=== PATIENT | female | born 1975 | race Caucasian/White ===

== ENCOUNTER 2017-12-13 06:34 | Day surgery (SDC) | payer MEDICAID ==
[2017-12-11 15:54] VITALS: BMI 29.7
[~2017-12-13 06:34] MED LIST: HEPARIN SODIUM,PORCINE 5,000 UNIT/ML 1 ML VIAL SQ ONE; Pre Op ABX Message 1 EACH MISC MISCELLANE ONE
[2017-12-13] MEDS ORDERED: MORPHINE SULFATE 4 MG/ML SYRINGE IV PRN (06:45)
[2017-12-13] MEDS ORDERED: LACTATED RINGERS 1,000 ML IV SCH (06:45)
[2017-12-13] MEDS ORDERED: LIDOCAINE 1% 20 ML VIAL (10MG/ML) FOR IV START INTRADERMA PRN (06:45)
[2017-12-13] MEDS ORDERED: SCOPOLAMINE 1.5MG/72HR PATCH TRANSDERM ONE (06:45)
[2017-12-13] MEDS ORDERED: MIDAZOLAM 2 MG/2 ML VIAL IV PRN (06:45)
[2017-12-13] MEDS ORDERED: HYDROmorphone 0.5 MG/0.5 ML SYRINGE IVP PRN (06:45)
[2017-12-13] MEDS ORDERED: ONDANSETRON 4 MG/2 ML VIAL IVP ONE (06:45)
[2017-12-13] MEDS ORDERED: DEXAMETHASONE SOD PHOSPHATE 10 MG/ML 1 ML VIAL IV ONE (06:45)
[2017-12-13 07:29] LABS: Glucose,Whole Blood 128 mg/dL (75-99)
[2017-12-13] MEDS ORDERED: BUPIVACAINE (PF) 0.25% 30 ML VIAL SQ ONE ×3 (07:53→08:51)
[2017-12-13] MEDS ORDERED: MIDAZOLAM 2 MG/2 ML VIAL ONE (08:15)
[2017-12-13] MEDS ORDERED: LIDOCAINE 1% INJ 10MG/ML (20 ML MDV) ONE (08:15)
[2017-12-13] MEDS ORDERED: SUCCINYLCHOLINE CHLORIDE 100 MG/5 ML SYR IV ONE (08:15)
[2017-12-13] MEDS ORDERED: KETOROLAC 30 MG/ML 1 ML VIAL ONE (08:15)
[2017-12-13] MEDS ORDERED: PROPOFOL 10 MG/ML 20 ML VIAL IV ONE (08:15)
[2017-12-13] MEDS ORDERED: fentaNYL (PF) 50 MCG/ML 2 ML AMP ONE (08:15)
[2017-12-13] MEDS ORDERED: traMADol 50 MG TAB PO PRN (08:31)
[2017-12-13] MEDS ORDERED: NALOXONE 0.4 MG/ML 1 ML VIAL IV PRN (08:31)
[2017-12-13 09:19] VITALS: TEMP 97.1
--- NOTE | 2017-12-13 09:36 | P.OP ---
Date of Procedure: 12/13/17 Procedure(s) Performed: PREOPERATIVE DIAGNOSIS: Sebaceous cyst on back POSTOPERATIVE DIAGNOSIS: Same PROCEDURE: Excision sebaceous cyst, intermediate closure 4 cm SURGEON: Marilia KINGL: Minimal ANESTHESIA: General COMPLICATIONS: None OPERATIVE PROCEDURE: Patient place never table in the prone position after general anesthesia achieved. The upper back was prepped and draped in usual sterile fashion. The puncta of the sebaceous cyst was seen. An elliptical portion of skin was removed overlying the cystic mass. The subcutaneous tissues were then dissected. The sebaceous cyst was fully excised at that point. This measured 3 x 4 cm. The subcutaneous tissues were closed using interrupted 3-0 Vicryl sutures and the skin using a running 4-0 Monocryl stitch. Steri-Strips and sterile dressings were applied. DISPOSITION: Stable to recovery room
[2017-12-13 09:47] VITALS: RESP 16
[2017-12-13 10:11] VITALS: BP 134/79; PULSE 75
[2017-12-13] MEDS ORDERED: IBUPROFEN 200 MG TAB PO ONE (10:11)
== END 2017-12-13 10:38 | disposition home or self-care (01) ==
LOC: OR 06:34
PROVIDERS: ATTEND Surgery
DX: L72.0 Epidermal cyst (principal); I10 Essential (primary) hypertension; R73.03 Prediabetes; F32.9 Major depressive disorder, single episode, unspecified; Z87.891 Personal history of nicotine dependence; F41.9 Anxiety disorder, unspecified; Z79.1 Long term (current) use of non-steroidal anti-inflammatories (NSAID); Z79.899 Other long term (current) drug therapy; Z88.0 Allergy status to penicillin; Z91.030 Bee allergy status; Z91.040 Latex allergy status; Z91.09 Other allergy status, other than to drugs and biological substances
CPT/HCPCS: 11404; 88304; J2250; J1644; J1100; J2405; J2001; J3010; J1885; J0330; J2704

== ENCOUNTER → 2018-05-29 | Outpatient (CLI) | payer MEDICAID ==
--- NOTE | 2018-05-31 10:51 | MM ---
Reason for exam: screening (asymptomatic). Last mammogram was performed 2 years and 5 months ago. History: Patient is postmenopausal. Retro-pectoral silicone gel implants, 2011. MG 3D Screen Mammo Imp/Cad Bilateral CC, MLO, and ID view(s) were taken. Prior study comparison: December 30, 2015, bilateral MG 3d screen mammo imp/cad. June 30, 2014, mammogram, performed at [facility]. There are scattered fibroglandular densities. No significant changes when compared with prior studies. ASSESSMENT: Negative, BI-RAD 1 RECOMMENDATION: Routine screening mammogram of both breasts in 1 year.
== END ==
LOC: RADMAMWWP 15:29
PROVIDERS: ATTEND Family Medicine
DX: Z12.31 Encounter for screening mammogram for malignant neoplasm of breast (principal); Z01.419 Encounter for gynecological examination (general) (routine) without abnormal findings
CPT/HCPCS: 77063; 77067

== ENCOUNTER 2018-05-30 06:33 | Day surgery (SDC) | payer MEDICAID ==
[2018-05-28 09:04] VITALS: BMI 31.8
[~2018-05-30 06:33] MED LIST changes: -HEPARIN SODIUM,PORCINE 5,000 UNIT/ML 1 ML VIAL SQ ONE; +HYDROmorphone 1 MG/ML 1 ML SYRINGE IVP PRN; +LACTATED RINGERS 1,000 ML IV SCH; -Pre Op ABX Message 1 EACH MISC MISCELLANE ONE
[2018-05-30 07:10] VITALS: TEMP 98.1
[2018-05-30 07:13] LABS: Glucose,Whole Blood 138 mg/dL (75-99)
[2018-05-30] MEDS ORDERED: PROPOFOL 10 MG/ML 20 ML VIAL IV ONE (07:37)
[2018-05-30] MEDS ORDERED: LIDOCAINE 1% INJ 10MG/ML (20 ML MDV) ONE (07:37)
[2018-05-30 07:52] VITALS: RESP 16
--- NOTE | 2018-05-30 07:53 | P.PCN ---
Date of Procedure: 05/30/18 Procedure(s) Performed: BRIEF HISTORY: Patient is a 43-year-old, pleasant, white female, scheduled for an upper endoscopy as a part of evaluation of positive on celiac serology. She has no family history of celiac disease. He has history of IBS that is constipation predominant diagnosable years ago. PROCEDURE PERFORMED: Esophagogastroduodenoscopy with biopsy. PREOPERATIVE DIAGNOSIS: Positive celiac serology. IV sedation per anesthesia. PROCEDURE: After informed consent was obtained, the patient was brought into the endoscopy unit. IV sedation was administered by Anesthesia under continuous monitoring. Initially the Olympus GIF-140 video endoscope was inserted into the mouth. Esophagus intubated without any difficulty. It was gradually advanced into the stomach and duodenum and carefully examined. The bulb and the second part of the duodenum appeared normal. Multiple biopsies were done from the duodenum to evaluate for celiac disease. The scope at this time was withdrawn to the stomach, adequately insufflated with air, and upon careful examination, mucosa of the antrum had mild gastritis and biopsies were done from this area. The, body, cardia and the fundus appeared normal. The scope was then withdrawn into the esophagus. The GE junction was located at 39 cm from the incisors. The esophagus appeared normal. There were no erosions or ulcerations seen and the patient tolerated the procedure well. IMPRESSION: 1. Mild antral gastritis. 2. Normal-appearing duodenum status post multiple biopsies to rule out celiac disease. RECOMMENDATIONS: The findings of this examination were discussed with the patient as well as her family. She was advised to follow with the biopsy results and she'll be seen in office in 2 weeks
[2018-05-30 08:05] VITALS: BP 152/93; PULSE 70
== END 2018-05-30 08:53 | disposition home or self-care (01) ==
LOC: ORWHC2ENDO 06:33
PROVIDERS: ATTEND Internal Medicine Gastroenterology
DX: K29.70 Gastritis, unspecified, without bleeding (principal); Z91.040 Latex allergy status; I10 Essential (primary) hypertension; E11.9 Type 2 diabetes mellitus without complications; N30.10 Interstitial cystitis (chronic) without hematuria; Z79.899 Other long term (current) drug therapy; Z79.1 Long term (current) use of non-steroidal anti-inflammatories (NSAID); Z87.891 Personal history of nicotine dependence; Z88.0 Allergy status to penicillin
CPT/HCPCS: 88305; 43239; J2001; J2704

== ENCOUNTER → 2019-08-09 | Outpatient (CLI) | payer MEDICAID ==
--- NOTE | 2019-08-09 13:58 | MM ---
Reason for exam: screening (asymptomatic). Last mammogram was performed 1 year and 2 months ago. History: Patient is postmenopausal. Retro-pectoral silicone gel implants, 2011. Physical Findings: A clinical breast exam by your physician is recommended on an annual basis and results should be correlated with mammographic findings. MG 3D Screen Mammo Imp/Cad Bilateral CC and MLO view(s) were taken. Prior study comparison: May 29, 2018, bilateral MG 3d screen mammo imp/cad. December 30, 2015, bilateral MG 3d screen mammo imp/cad. The breast tissue is heterogeneously dense. This may lower the sensitivity of mammography. There are benign appearing round calcifications bilaterally. There is no discrete abnormality. Bilateral subpectoral implants. ASSESSMENT: Benign, BI-RAD 2 RECOMMENDATION: Routine screening mammogram of both breasts in 1 year.
== END | disposition home or self-care (01) ==
LOC: RADMAMWWP 07:44
PROVIDERS: ATTEND Family Medicine
DX: Z12.31 Encounter for screening mammogram for malignant neoplasm of breast (principal)
CPT/HCPCS: 77063; 77067

== ENCOUNTER → 2020-09-09 | Outpatient (CLI) | payer MEDICAID ==
--- NOTE | 2020-09-10 12:18 | MM ---
Reason for exam: screening (asymptomatic). Last mammogram was performed 1 year and 1 month ago. History: Patient is postmenopausal. Retro-pectoral silicone gel implants, 2012. Took hormonal contraceptives for 25 years beginning at age 17. Physical Findings: Nurse did not find any significant physical abnormalities on exam. MG 3D Screen Mammo Imp/Cad Bilateral CC, MLO, and ID view(s) were taken. Prior study comparison: August 09, 2019, bilateral MG 3d screen mammo imp/cad. May 29, 2018, bilateral MG 3d screen mammo imp/cad. The breast tissue is heterogeneously dense. This may lower the sensitivity of mammography. Focal asymmetry upper outer right breast anterior third position. ASSESSMENT: Incomplete: need additional imaging evaluation, BI-RAD 0 RECOMMENDATION: Special view mammogram of the right breast. If lesion persists on supplemental views, image directed ultrasound is recommended. [facility] will attempt to contact patient to return for supplemental views and ultrasound if indicated.
== END | disposition home or self-care (01) ==
LOC: RADMAMWWP 07:05
PROVIDERS: ATTEND Family Medicine
DX: Z12.31 Encounter for screening mammogram for malignant neoplasm of breast (principal); Z98.82 Breast implant status
CPT/HCPCS: 77063; 77067

== ENCOUNTER → 2020-09-11 | Outpatient (CLI) | payer MEDICAID ==
--- NOTE | 2020-09-11 09:34 | MM ---
Reason for exam: additional evaluation requested from abnormal screening. Last mammogram was performed less than 1 month ago. History: Patient is postmenopausal. Retro-pectoral silicone gel implants, 2012. Took hormonal contraceptives for 25 years beginning at age 17. Physical Findings: Nurse did not find any significant physical abnormalities on exam. MG 3D Work Up W/Cad W/Imp RT Spot compression CC, spot compression MLO, and ML view(s) were taken of the right breast. Prior study comparison: September 09, 2020, bilateral MG 3d screen mammo imp/cad. August 09, 2019, bilateral MG 3d screen mammo imp/cad. There is no discrete abnormality including area of concern. These results were verbally communicated with the patient and result sheet given to the patient on 09/11/20. ASSESSMENT: Negative, BI-RAD 1 RECOMMENDATION: Return to routine screening mammogram schedule for both breasts.
== END | disposition home or self-care (01) ==
LOC: RADMAMWWP 07:10
PROVIDERS: ATTEND Family Medicine
DX: R92.8 Other abnormal and inconclusive findings on diagnostic imaging of breast (principal)
CPT/HCPCS: 77061; 77065

== ENCOUNTER → 2021-08-10 | Outpatient (CLI) | payer BC, MEDICAID ==
[~2021-08-10] MED LIST changes: +CASIRIVIMAB (REGN10933) (EUA) 600 MG, IMDEVIMAB (REGN10987) (EUA) 600 MG in SODIUM CHLO... IVPB ONE; -HYDROmorphone 1 MG/ML 1 ML SYRINGE IVP PRN; -LACTATED RINGERS 1,000 ML IV SCH; +SODIUM CHLORIDE 0.9% 50 ML IVPB ONE; +SODIUM CHLORIDE 0.9% 500 ML 500 ML in EMPTY BAG 1 BAG IV PRN
[2021-08-10 10:43] VITALS: RESP 16; TEMP 97.4
[2021-08-10 11:35] VITALS: BP 146/89; PULSE 66
== END ==
LOC: PROCWHC3 09:52
PROVIDERS: ATTEND Family Medicine
DX: U07.1 COVID-19 (principal); E11.9 Type 2 diabetes mellitus without complications; Z68.31 Body mass index [BMI] 31.0-31.9, adult; Z88.0 Allergy status to penicillin; Z91.040 Latex allergy status; Z91.030 Bee allergy status; Z87.891 Personal history of nicotine dependence
CPT/HCPCS: 96360; Q0244; M0243

== ENCOUNTER 2022-03-28 18:59 | Emergency (ER) | payer BC, OTHER ==
[2022-03-28 19:20] VITALS: BP 150/84; PULSE 77; RESP 18; TEMP 98.3
[2022-03-28] MEDS ORDERED: HYDROcodone/APAP 5-325MG 1 EACH TAB PO STA (20:15)
[2022-03-28] MEDS ORDERED: KETOROLAC 15 MG/ML 1 ML VIAL IM STA (20:15)
--- NOTE | 2022-03-28 20:18 | ED ---
Extremity Problem HPI - General Chief complaint: Extremity Problem,Nontraumatic Stated complaint: L knee injury Time Seen by Provider: 03/28/22 20:01 Source: patient, RN notes reviewed Mode of arrival: wheelchair Limitations: physical limitation - History of Present Illness Initial comments: This is a pleasant 46-year-old female who jumped out of her 's truck prior to arrival and her left knee gave out on her. Patient states she's been unable to walk on the knee since then. She is complaining of most of the pain just below the knee joint itself. She also complains of some pain in the popliteal area and over the anterior aspect of the knee joint. She denies any hip or ankle pain. She does have some distal Karlee to since injury. Movement exacerbates the pain. Position and rest somewhat alleviates the pain. No other injuries. Patient did not take anything for pain prior to arrival. No headache, no fever or chills, no changes in vision or hearing, no sore throat or difficulty with speech, no neck pain, no chest pain or shortness of breath, no abdominal pain, no nausea or vomiting, no changes in urination or bowel movements no skin rashes or lesions. Past medical, surgical, social, and family history reviewed. - Related Data Home Medications Medication Instructions Recorded Confirmed ALPRAZolam [Xanax] 0.25 mg PO HS PRN 12/11/17 10/17/18 FLUoxetine HCL [PROzac] 10 mg PO HS 12/11/17 10/17/18 Ibuprofen [Motrin Ib] 200 mg PO Q6H PRN 12/11/17 10/17/18 amLODIPine [Norvasc] 2.5 mg PO HS 12/11/17 10/17/18 Cholecalciferol [Vitamin D3] 2,000 unit PO DAILY 05/28/18 10/17/18 metFORMIN HCL [Glucophage] 500 mg PO DAILY 10/17/18 10/17/18 Previous Rx's Medication Instructions Recorded Ibuprofen [Motrin] 600 mg PO Q8HR PRN #30 tab 03/28/22 Allergies Allergy/AdvReac Type Severity Reaction Status Date / Time bee pollen Allergy Rash/Hives Verified 03/28/22 19:16 Latex, Natural Rubber Allergy Rash/Hives Verified 03/28/22 19:16 Penicillins Allergy Rash/Hives Verified 03/28/22 19:16 Review of Systems ROS Statement: Those systems with pertinent positive or pertinent negative responses have been documented in the HPI. ROS Other: All systems not noted in ROS Statement are negative. Past Medical History Past Medical History: Diabetes Mellitus, Hypertension Additional Past Medical History / Comment(s): abdominal pain,bloating and gas,hx interstitial cystitis, "pre-diabetic" History of Any Multi-Drug Resistant Organisms: None Reported Past Surgical History: Section, Cholecystectomy, Hysterectomy, Uterine Ablation Additional Past Surgical History / Comment(s): laparoscopy, breast implants, tummy tuck, EGD,colonoscopy Past Anesthesia/Blood Transfusion Reactions: No Reported Reaction Past Psychological History: Depression Smoking Status: Never smoker Past Alcohol Use History: Occasional Past Drug Use History: None Reported - Past Family History Father Family Medical History: Deep Vein Thrombosis (DVT) General Exam Limitations: physical limitation General appearance: in distress Head exam: Present: atraumatic, normocephalic, normal inspection Eye exam: Present: normal appearance, EOMI Neck exam: Present: normal inspection, full ROM Respiratory exam: Present: normal lung sounds bilaterally. Absent: respiratory distress, wheezes, rales, rhonchi, stridor Cardiovascular Exam: Present: regular rate, normal rhythm, normal heart sounds. Absent: systolic murmur, diastolic murmur, rubs, gallop, clicks GI/Abdominal exam: Present: soft. Absent: tenderness Extremities exam: Present: normal inspection, tenderness, normal capillary refill, other (Chest tenderness to the bilateral left knee joint, no break in skin integrity. No erythema. No crepitus. Range of motion limited secondary to pain. Patient is able to almost fully extend the knee. Extension and flexion limited by pain. No palpable effusion.). Absent: full ROM, pedal edema, joint swelling, calf tenderness Back exam: Present: normal inspection, full ROM. Absent: tenderness Neurological exam: Present: alert, oriented X3, CN II-XII intact Psychiatric exam: Present: normal affect, normal mood Course Vital Signs 03/28/22 19:17 Temperature 98.3 F Pulse Rate 77 Respiratory 18 Rate Blood Pressure 150/84 O2 Sat by Pulse 95 Oximetry Medical Decision Making - Medical Decision Making Patient percents after her left knee gave out when she jumped out of a truck. This was not direct trauma. He was actually actionable finding. I suspect the patient has internal derangement of left knee, possible ligamentous injury. Was unable to perform detailed physical examination due to the patient's pain. We'll place the patient in the immobilizer and crutches. Discussed the possibility of occult fracture. Currently awaiting radiology interpretation. Tylenol with Codeine starter pack. Ibuprofen. Patient was told to return to the ER for any signs or symptoms worsen. Told to return immediately if any other problems arise. All questions answered. Treatment plan discussed. Patient in agreement Every effort has been made to ensure accuracy of this dictation. However, due to the limitations of electronic medical records and dictation devices, errors in charting still occur. Discussed all findings and treatment plan with the patient. Orthopedic follow- up given. [facility] Classer Dr. Malhotra - Radiology Data Radiology results: pending (No fracture or dislocation as read by me. Awaiting radiology interpretation.), image reviewed Disposition Clinical Impression: Internal derangement of left knee Disposition: HOME SELF-CARE Condition: Good Instructions (If sedation given, give patient instructions): Crutch Instructions (ED), Knee Pain (ED), Knee Immobilizer (ED) Additional Instructions: Follow-up with your regular physician as directed. Return to the ER immediately if any symptoms worsen, new symptoms arise, or any other problems develop. Follow-up with the orthopedic physician as directed. Wear the knee immobilizer use the crutches as directed. Prescriptions: Ibuprofen [Motrin] 600 mg PO Q8HR PRN #30 tab PRN Reason: Pain Is patient prescribed a controlled substance at d/c from ED?: No Referrals: Sloane Larsen III, MD [Primary Care Provider] - 1-2 days Time of Disposition: 21:24
[2022-03-28] MEDS ORDERED: IBUPROFEN 600 MG STARTER PACK 4 TAB BTL PO STA (21:23)
[2022-03-28] MEDS ORDERED: ACET/COD 300 MG/30 MG STARTER PACK 6 TAB BTL PO STA (21:23)
--- NOTE | 2022-03-28 21:28 | XR ---
EXAMINATION TYPE: XR knee complete LT DATE OF EXAM: 03/28/2022 COMPARISON: NONE HISTORY: Pain TECHNIQUE: 3 views FINDINGS: I see no fracture nor dislocation. Joint spaces are normal. No sign of knee joint effusion. IMPRESSION: Negative left knee exam. No fracture
== END 2022-03-28 22:20 | disposition home or self-care (01) ==
LOC: EC 18:59
DX: M23.92 Unspecified internal derangement of left knee (principal); E11.9 Type 2 diabetes mellitus without complications; I10 Essential (primary) hypertension; Z91.030 Bee allergy status; Z88.0 Allergy status to penicillin; Z91.040 Latex allergy status
CPT/HCPCS: 73562; 99283; 96372; J1885

== ENCOUNTER → 2022-08-02 | Outpatient (CLI) | payer OTHER ==
--- NOTE | 2022-08-03 17:05 | MM ---
Reason for Exam: Screening (asymptomatic). Last mammogram was performed 1 year(s) and 11 month(s) ago. Patient History: Menarche at age 11. First Full-Term at age 20. Hysterectomy at age 39. Postmenopausal. Patient has history of breast feeding. Hormonal Contraceptives, starting at age 17 for 25 years. 2012, Implant(s). Risk Values: Adela 5 year model risk: 0.9%. NCI Lifetime model risk: 9.2%. Prior Study Comparison: 08/09/2019 Bilateral Screening Mammogram, [facility]. 09/09/2020 Bilateral Screening Mammogram, [facility]. 09/11/2020 Right Diagnostic Mammogram, [facility]. Tissue Density: There are scattered fibroglandular densities. Findings: Analyzed By CAD. Pattern appears symmetrical and stable. Bilateral breast prostheses are present. No suspicious groups of microcalcifications, spiculated or lobular masses, architectural distortion or other secondary signs of malignancy are mammographically apparent. Overall Assessment: Benign, BI-RAD 2 Management: Screening Mammogram of both breasts in 1 year. A negative mammogram report should not preclude additional follow up of suspicious palpable abnormalities. Patient should continue monthly self breast exam. A clinical breast exam by your physician is recommended on an annual basis and results should be correlated with mammographic findings. Electronically signed and approved by: Marcus Diehl D.O. Radiologis
== END | disposition home or self-care (01) ==
LOC: RADMAMWWP 08:59
PROVIDERS: ATTEND Family Medicine
DX: Z12.31 Encounter for screening mammogram for malignant neoplasm of breast (principal); Z78.0 Asymptomatic menopausal state; Z98.82 Breast implant status
CPT/HCPCS: 77063; 77067

== ENCOUNTER → 2023-11-28 | Outpatient (CLI) | payer OTHER ==
--- NOTE | 2023-11-29 09:14 | MM ---
Reason for Exam: Screening (asymptomatic). Last mammogram was performed 1 year(s) and 3 month(s) ago. Patient History: Menarche at age 11. First Full-Term at age 20. Hysterectomy at age 39. Postmenopausal. Patient has history of breast feeding. Hormonal Contraceptives, starting at age 17 for 25 years. 2012, Implant(s). Risk Values: Adela 5 year model risk: 0.9%. NCI Lifetime model risk: 9.1%. Prior Study Comparison: 09/09/2020 Bilateral Screening Mammogram, [facility]. 09/11/2020 Right Diagnostic Mammogram, [facility]. 08/02/2022 Bilateral MG 3D screen mammo imp/cad., [facility]. Tissue Density: The breasts are heterogeneously dense, which may obscure small masses. Findings: Analyzed By CAD. Bilateral breast implants appear intact. Right breast: There is no suspicious group of microcalcifications or new suspicious mass. Left breast: There is no suspicious group of microcalcifications or new suspicious mass. Overall Assessment: Negative, BI-RAD 1 Management: Screening Mammogram of both breasts in [address] [facility] will attempt to contact patient to return for supplemental views and ultrasound if indicated. Patient should continue monthly self-breast exams. A clinical breast exam by your physician is recommended on an annual basis. This exam should not preclude additional follow-up of suspicious palpable abnormalities. Note on Adela scores and lifetime risk: 1. A Adela score greater than 3% is considered moderate risk. If this is the case, consider specialist referral to assess eligibility for a risk reducing agent. 2. If overall lifetime risk for the development of breast cancer is 20% or higher, the patient may qualify for future screening with alternating mammogram and breast MRI. Electronically signed and approved by: Kael Woodson DO
== END | disposition home or self-care (01) ==
LOC: RADMAMWWP 06:57
PROVIDERS: ATTEND Family Medicine
DX: Z12.31 Encounter for screening mammogram for malignant neoplasm of breast (principal); Z78.0 Asymptomatic menopausal state; Z98.82 Breast implant status
CPT/HCPCS: 77063; 77067

== ENCOUNTER 2024-01-02 09:32 | Inpatient (IN) | payer MEDICAID, OTHER ==
--- NOTE | 2024-01-02 10:13 | ED ---
Chest Pain HPI - General Chief Complaint: Chest Pain Stated Complaint: R arm pain/Abn EKG Time Seen by Provider: 01/02/24 09:40 Source: patient, EMS Mode of arrival: EMS Limitations: no limitations - History of Present Illness Initial Comments: 48-year-old female presents to the emergency department from her doctor's office. States that she started having pain in her right shoulder that radiates into her right arm. Pain is not reproducible upon palpation or movement. She had an EKG performed which was abnormal and therefore she was sent to the hospital. Patient is a diabetic and has high blood pressure. States she has a large family history of cardiac disease. No personal history of heart problems. She did not take anything for the pain. No pain that radiates to the back. No concern for . No abdominal pain or changes in her bowel or bladder habits. She did receive 4 chewable aspirins before being sent to the hospital. no other alleviating, precipitating or modifying factors - Related Data Home Medications Medication Instructions Recorded Confirmed Ascorbic Acid [Vitamin C] 1,000 mg PO DAILY 01/02/24 01/02/24 Cyanocobalamin (Vitamin B-12) 1,000 mcg PO DAILY 01/02/24 01/02/24 [Vitamin B-12] Ergocalciferol (Vitamin D2) 1,250 mcg PO MO 01/02/24 01/02/24 [Drisdol (50,000 Iu)] Sertraline [Zoloft] 100 mg PO DAILY 01/02/24 01/02/24 busPIRone HCl [Buspar] 10 mg PO BID 01/02/24 01/02/24 metFORMIN HCL 1,000 mg PO BID 01/02/24 01/02/24 Previous Rx's Medication Instructions Recorded Aspirin 81 mg PO DAILY #90 tab 01/04/24 Atorvastatin [Lipitor] 40 mg PO HS #90 tablet 01/04/24 amLODIPine [Norvasc] 5 mg PO DAILY #90 tab 01/04/24 lisinopriL [Zestril] 20 mg PO DAILY #90 tab 01/04/24 Allergies Allergy/AdvReac Type Severity Reaction Status Date / Time bee pollen Allergy Rash/Hives Verified 01/02/24 11:19 Latex, Natural Rubber Allergy Rash/Hives Verified 01/02/24 11:19 Penicillins Allergy Rash/Hives Verified 01/02/24 11:19 Review of Systems ROS Statement: Those systems with pertinent positive or pertinent negative responses have been documented in the HPI. ROS Other: All systems not noted in ROS Statement are negative. Past Medical History Past Medical History: Diabetes Mellitus, Hypertension Additional Past Medical History / Comment(s): abdominal pain,bloating and gas,hx interstitial cystitis, "pre-diabetic" History of Any Multi-Drug Resistant Organisms: None Reported Past Surgical History: Section, Cholecystectomy, Hysterectomy, Orthopedic Surgery, Uterine Ablation Additional Past Surgical History / Comment(s): laparoscopy, breast implants, tummy tuck, EGD,colonoscopy, L knee meniscus and ACL Past Anesthesia/Blood Transfusion Reactions: No Reported Reaction Past Psychological History: Depression Smoking Status: Never smoker Past Alcohol Use History: Occasional Past Drug Use History: None Reported - Past Family History Father Family Medical History: Deep Vein Thrombosis (DVT) Mother Family Medical History: Coronary Artery Disease (CAD) Additional Family Medical History / Comment(s): Triple bipass Brother(s) Family Medical History: Diabetes Mellitus, Myocardial Infarction ([place]) General Exam Limitations: no limitations General appearance: alert, in no apparent distress Head exam: Present: atraumatic, normocephalic, normal inspection Eye exam: Present: normal appearance, PERRL, EOMI. Absent: scleral icterus, conjunctival injection, periorbital swelling ENT exam: Present: normal exam, mucous membranes moist Neck exam: Present: normal inspection. Absent: tenderness, meningismus, lym phadenopathy Respiratory exam: Present: normal lung sounds bilaterally. Absent: respiratory distress, wheezes, rales, rhonchi, stridor Cardiovascular Exam: Present: regular rate, normal rhythm, normal heart sounds. Absent: systolic murmur, diastolic murmur, rubs, gallop, clicks GI/Abdominal exam: Present: soft, normal bowel sounds. Absent: distended, tenderness, guarding, rebound, rigid Extremities exam: Present: normal inspection, full ROM, normal capillary refill. Absent: tenderness, pedal edema, joint swelling, calf tenderness Back exam: Present: normal inspection Neurological exam: Present: alert, oriented X3, CN II-XII intact Psychiatric exam: Present: normal affect, normal mood Skin exam: Present: warm, dry, intact, normal color. Absent: rash Course Vital Signs 01/02/24 01/02/2401/01/24 09:34 10:41 12:04 Temperature 97.9 F Pulse Rate 58 L 61 58 L Respiratory 18 16 18 Rate Blood Pressure 183/97 171/96 158/86 O2 Sat by Pulse 98 99 97 Oximetry Chest Pain MDM - MDM Was pt. sent in by a medical professional or institution (SANTY Denis, D[employer] MARKETING MANAGER, urgent care, hospital, or detention...) When possible be specific @ -Patient sent in from the clinic with abnormal EKG Did you speak to anyone other than the patient for history (EMS, parent, family, police, friend...)? What history was obtained from this source @ -No Did you review nursing and triage notes (agree or disagree)? Why? @ -I reviewed and agree with nursing and triage notes Were old charts reviewed (outside hosp., previous admission, EMS record, old EKG, old radiological studies, urgent care reports/EKG's, detention records)? Report findings @ -I reviewed the EKG that was done at the clinic today Differential Diagnosis (chest pain, altered mental status, abdominal pain women, abdominal pain men, vaginal bleeding, weakness, fever, dyspnea, syncope, headache, dizziness, GI bleed, back pain, seizure, CVA, palpatations, mental health, musculoskeletal)? @ -Differential Chest Pain: Stable Angina, Unstable Angina, STEMI, NSTEMI Aortic Dissection, Pneumothorax, Musculoskeletal, Esophageal Spasm GERD, Cholecystitis, Pancreatitis, Zoster, this is not meant to be an all-inclusive list. EKG interpreted by me (3pts min.). @ -Yes and demonstrates sinus bradycardia with a rate of 54. MI interval 144. QRS 97. QTc of 410. Inverted T wave V2V3. No acute ST segment elevation X-rays interpreted by me (1pt min.). @ -Yes and demonstrates no acute process CT interpreted by me (1pt min.). @ -None done U/S interpreted by me (1pt. min.). @ -None done What testing was considered but not performed or refused? (CT, X-rays, U/S, labs)? Why? @ -None What meds were considered but not given or refused? Why? @ -None Did you discuss the management of the patient with other professionals (professionals i.e. SANTY Denis, D[employer] CONTENT MARKETING MANAGER, lab, RT, psych nurse, social work lecturer, political worker, teacher, chief information security officer, bottle caser)? Give summary @ -Spoke with Paulina from [facility] for admission Was smoking cessation discussed for >3mins.? @ -No Was critical care preformed (if so, how long)? @ -No Were there social determinants of health that impacted care today? How? (Homelessness, low income, unemployed, alcoholism, drug addiction, transportation, low edu. Level, literacy, decrease access to med. care, penitentiary, rehab)? @ -No Was there de-escalation of care discussed even if they declined (Discuss DNR or withdrawal of care, Hospice)? DNR status @ -No What co-morbidities impacted this encounter? (DM, HTN, Smoking, COPD, CAD, Cancer, CVA, ARF, Chemo, Hep., AIDS, mental health diagnosis, sleep apnea, morbid obesity)? @ -Diabetes mellitus Was patient admitted / discharged? Hospital course, mention meds given and route, prescriptions, significant lab abnormalities, going to OR and other pertinent info. @ -Upon arrival patient seen and evaluated in room 3. Thorough history and physical exam was performed. Patient has posterior shoulder pain and chest pain which is not reproducible upon palpation. I did give her nitro which did not alleviate her pain. Laboratory studies were conducted. Chest x-ray was performed. Results are discussed with the patient. She does have risk factors for heart disease. Her heart score is 4. Because of this I will admit the patient to the hospital. Spoke with Paulina from [facility] who agreed to the admission Undiagnosed new problem with uncertain prognosis? @ -Yes Drug Therapy requiring intensive monitoring for toxicity (Heparin, Nitro, Insulin, Cardizem)? @ -No Were any procedures done? @ -No Diagnosis/symptom? @Acute right shoulder/chest pain Acute, or Chronic, or Acute on Chronic? @ -Acute Uncomplicated (without systemic symptoms) or Complicated (systemic symptoms)? @ -Complicated Side effects of treatment? @ -No Exacerbation, Progression, or Severe Exacerbation? @ -No Poses a threat to life or bodily function? How? (Chest pain, [place], [place], pneumonia, PE, COPD, DKA, ARF, appy, cholecystitis, CVA, Diverticulitis, Homicidal, Suicidal, threat to staff... and all critical care pts) @ -No Disposition Clinical Impression: Chest pain, Shoulder pain, Abnormal EKG, Accelerated hypertension Disposition: ADMITTED IP TO THIS [facility] Condition: Stable Is patient prescribed a controlled substance at d/c from ED?: No Decision to Admit Reason: Admit from EC Decision Date: 01/02/24 Decision Time: 12:27
[2024-01-02 10:46] LABS: Basophils # (A) 0.1 k/uL (0-0.2); Basophils % (A) 1 %; Eosinophils # (A) 0.1 k/uL (0-0.7); Eosinophils % (A) 2 %; HCT 43.3 % (34.0-46.0); HGB 13.7 gm/dL (11.4-16.0); Lymphocytes # (A) 2.3 k/uL (1.0-4.8); Lymphocytes % (A) 32 %; MCH 28.2 pg (25.0-35.0); MCHC 31.6 g/dL (31.0-37.0); Monocytes # (A) 0.4 k/uL (0-1.0); Monocytes % (A) 5 %; Neutrophils # (A) 4.2 k/uL (1.3-7.7); Neutrophils % (A) 58 %; Platelet Count 269 k/uL (150-450); RBC 4.86 m/uL (3.80-5.40); RDW 13.5 % (11.5-15.5); WBC 7.1 k/uL (3.8-10.6)
[2024-01-02] MEDS: NITROGLYCERIN SL TABS 0.4 MG TAB SUBLINGUAL STA (10:48)
[2024-01-02 10:49] LABS: Partial Thromboplastin Time 24.8 sec (22.0-30.0); Prothrombin Time 10.5 sec (10.0-12.5)
[2024-01-02 10:52] LABS: ALT 29 U/L (4-34); AST 35 U/L (14-36); African American GFR (CKD) >90 (>60 ml/min/1.73 sqM); Albumin 4.2 g/dL (3.5-5.0); Alkaline Phosphatase 74 U/L (38-126); Anion Gap 8 mmol/L; Blood Urea Nitrogen 12 mg/dL (7-17); Calcium 9.4 mg/dL (8.4-10.2); Carbon Dioxide 20 mmol/L (22-30); Chloride 109 mmol/L (98-107); Glucose 112 mg/dL (74-99); Magnesium 1.7 mg/dL (1.6-2.3); Non-African American GFR(CKD) >90 (>60 ml/min/1.73 sqM); Sodium 137 mmol/L (137-145); Total Bilirubin 0.7 mg/dL (0.2-1.3); Total Protein 7.1 g/dL (6.3-8.2)
[2024-01-02] MEDS: MORPHINE SULFATE 4 MG/ML SYRINGE IVP STA (10:56)
--- NOTE | 2024-01-02 11:37 | XR ---
EXAMINATION TYPE: XR chest 2V DATE OF EXAM: 01/02/2024 11:08 AM CLINICAL INDICATION:Female, 48 years old with history of Cough/pain; PHH COMPARISON: None TECHNIQUE: XR chest 2V Frontal and lateral views of the chest. FINDINGS: Lungs/Pleura: There is no evidence of pleural effusion, focal consolidation, or pneumothorax. Pulmonary vascularity: Unremarkable. Heart/mediastinum: Cardiomediastinal silhouette is unremarkable. Musculoskeletal: No acute osseous pathology. Other findings: None IMPRESSION: No acute cardiopulmonary disease/process.
[2024-01-02] MEDS ORDERED: NALOXONE 0.4 MG/ML 1 ML VIAL IV PRN (12:37)
--- NOTE | 2024-01-02 14:32 | P.HPIM ---
History of Present Illness This is a pleasant 48 years old female with past medical history of diabetes mellitus, hypertension, s/p cholecystectomy and hysterectomy. Presents because of right upper back pain of 3 days duration, pain about 5-6/10 in severity, radiating around to the right arm and right axilla [place] like burning and stabbing pain, with no relieving or precipitating factors. Patient pain improves with pain medication and emergency room but she denies any recent history of trauma or fall and. Patient pain described as continuous She denies dyspnea or coughing No change in urine or bowel habits. No fever. She denies smoking illicit drugs, she drinks alcohol occasionally. Afebrile and vitals are stable She has unremarkable labs including INR, CBC, BMP, liver enzymes Troponin x 1 is negative less than 0.012. Chest x-ray is not showing no acute cardiopulmonary process EKG showing sinus bradycardia at [address]-T changes, T wave inversion in lead III, V1-V3 Review of Systems Review of systems CONSTITUTIONAL: No fever, no malaise, no fatigue. HEENT: No recent visual problems or hearing problems. Denied any sore throat. CARDIOVASCULAR: No orthopnea, PND, no palpitations, no syncope. PULMONARY: No shortness of breath, no cough, no hemoptysis. GASTROINTESTINAL: No diarrhea, no nausea, no vomiting, no abdominal pain. Normoactive bowel sounds. NEUROLOGICAL: No headaches, no weakness, no numbness. HEMATOLOGICAL: Denies any bleeding or petechiae. GENITOURINARY: Denies any burning micturition, frequency, or urgency. MUSCULOSKELETAL/RHEUMATOLOGICAL: Denies any joint pain, swelling, or any muscle pain. ENDOCRINE: Denies any polyuria or polydipsia. Past Medical History Past Medical History: Diabetes Mellitus, Hypertension Additional Past Medical History / Comment(s): abdominal pain,bloating and gas,hx interstitial cystitis, "pre-diabetic" History of Any Multi-Drug Resistant Organisms: None Reported Past Surgical History: Section, Cholecystectomy, Hysterectomy, Orthopedic Surgery, Uterine Ablation Additional Past Surgical History / Comment(s): laparoscopy, breast implants, tummy tuck, EGD,colonoscopy, L knee meniscus and ACL Past Anesthesia/Blood Transfusion Reactions: No Reported Reaction Past Psychological History: Depression Smoking Status: Never smoker Past Alcohol Use History: Occasional Past Drug Use History: None Reported - Past Family History Father Family Medical History: Deep Vein Thrombosis (DVT) Medications and Allergies Home Medications Medication Instructions Recorded Confirmed Type Ascorbic Acid [Vitamin C] 1,000 mg PO DAILY 01/02/24 01/02/24 History Cyanocobalamin (Vitamin B-12) 1,000 mcg PO DAILY 01/02/24 01/02/24 History [Vitamin B-12] Ergocalciferol (Vitamin D2) 1,250 mcg PO MO 01/02/24 01/02/24 History [Drisdol (50,000 Iu)] Sertraline [Zoloft] 100 mg PO DAILY 01/02/24 01/02/24 History busPIRone HCl [Buspar] 10 mg PO BID 01/02/24 01/02/24 History lisinopriL [Zestril] 10 mg PO DAILY 01/02/24 01/02/24 History metFORMIN HCL 1,000 mg PO BID 01/02/24 01/02/24 History Allergies Allergy/AdvReac Type Severity Reaction Status Date / Time bee pollen Allergy Rash/Hives Verified 01/02/24 11:19 Latex, Natural Rubber Allergy Rash/Hives Verified 01/02/24 11:19 Penicillins Allergy Rash/Hives Verified 01/02/24 11:19 Physical Exam Vitals: Vital Signs Temp Pulse Resp BP Pulse Ox 01/02/24 12:04 58 L 18 158/86 97 01/02/24 10:41 61 16 171/96 99 01/02/24 09:34 97.9 F 58 L 18 183/97 98 Intake and Output 01/01/24 01/02/24 01/02/24 22:59 06:59 14:59 Other: Weight 90.718 kg GENERAL: The patient is alert and oriented x3, not in any acute distress. Well developed, well nourished. HEENT: Pupils are round and equally reacting to light. EOMI. No scleral icterus. No conjunctival pallor. Normocephalic, atraumatic. No pharyngeal erythema. No thyromegaly. CARDIOVASCULAR: S1 and S2 present. No murmurs, rubs, or gallops. PULMONARY: Chest is clear to auscultation, no wheezing , no crackles. ABDOMEN: Soft, nontender, nondistended, normoactive bowel sounds. No palpable organomegaly. MUSCULOSKELETAL: No joint swelling or deformity. EXTREMITIES: No cyanosis, clubbing, or pedal edema. NEUROLOGICAL: Gross neurological examination did not reveal any focal deficits. SKIN: No rashes. no petechiae. Results CBC & Chem 7: 01/02/24 10:17 01/02/24 10:17 Labs: Abnormal Lab Results - Last 24 Hours (Table) 01/02/24 Range/Units 10:17 Chloride 109 H (98-107) mmol/L Carbon Dioxide 20 L (22-30) mmol/L Glucose 112 H (74-99) mg/dL Assessment and Plan Assessment: Right upper back pain radiating to the right axilla, rule out cardiac or orthopedic causes Diabetes mellitus Hypertension Obesity with BMI 31.3 Plan: Will do serial troponin Check echocardiogram X-rays was reviewed [facility] been consulted. We will ask for orthopedic evaluation as well Pain management Check hemoglobin A1c Labs and medication were reviewed.. Continue same treatment. Continue with symptomatic treatment. Resume home medication. Monitor labs and vitals. DVT and GI prophylaxis. Further recommendations as per clinical course of the patient DVT prophylaxis: Subcutaneous heparin GI Prophylaxis: Pepcid Prognosis is guarded
[2024-01-02] MEDS: HYDROcodone/APAP 5-325MG 1 EACH TAB PO STA (15:35)
[2024-01-02] MEDS: HEPARIN SODIUM,PORCINE 5,000 UNIT/ML 1 ML VIAL SQ SCH (15:36)
[2024-01-02 17:23] LABS: Glucose,Whole Blood 111 mg/dL (70-110)
[2024-01-02] MEDS: busPIRone HCl 10 MG TAB PO SCH (22:35)
[2024-01-02] MEDS: FAMOTIDINE 20 MG/2 ML VIAL IV SCH (22:35)
[2024-01-03] MEDS: MORPHINE SULFATE 4 MG/ML SYRINGE IV PRN (02:25)
[2024-01-03 05:59] LABS: Glucose,Whole Blood 120 mg/dL (70-110)
--- NOTE | 2024-01-03 06:55 | P.CNOR ---
History of Present Illness - HPI Consult date: 01/03/24 History of present illness: This is a 48-year-old female who is admitted for right-sided upper back pain x 3 to 4 days. Patient states that for the last few days she has had a burning pins and needle sensation from the back of her right shoulder that radiates to the fingers of her right hand and armpit. Patient denies any neck pain, upper back pain or shoulder pain. Patient states that she is able to fully move the right upper extremity without pain or difficulty. Patient states that she has noticed some weakness in the right hand, but otherwise states that her strength feels normal. Patient denies any history of neck issues or neuropathy. Patient states that she was initially concerned about her heart being the cause of her pain and states that she had an EKG done by her primary care physician who then sent her to the emergency room. Patient was then admitted for further workup. Patient's past medical history is significant for diabetes mellitus and hypertension. Patient denies any fever/chills, chest pain, shortness breath or abdominal pain. Review of Systems See HPI. Past Medical History Past Medical History: Diabetes Mellitus, Hypertension Additional Past Medical History / Comment(s): abdominal pain,bloating and gas,hx interstitial cystitis, "pre-diabetic" History of Any Multi-Drug Resistant Organisms: None Reported Past Surgical History: Section, Cholecystectomy, Hysterectomy, Orthopedic Surgery, Uterine Ablation Additional Past Surgical History / Comment(s): laparoscopy, breast implants, tummy tuck, EGD,colonoscopy, L knee meniscus and ACL Past Anesthesia/Blood Transfusion Reactions: No Reported Reaction Past Psychological History: Depression Smoking Status: Never smoker Past Alcohol Use History: Occasional Additional Past Alcohol Use History / Comment(s): quit smoking 15 yrs. ago, smoked <ppweek for 10 yrs. Past Drug Use History: None Reported - Past Family History Father Family Medical History: Deep Vein Thrombosis (DVT) Mother Family Medical History: Coronary Artery Disease (CAD) Additional Family Medical History / Comment(s): Triple bipass Brother(s) Family Medical History: Diabetes Mellitus, Myocardial Infarction ([place]) Medications and Allergies Home Medications Medication Instructions Recorded Confirmed Type Ascorbic Acid [Vitamin C] 1,000 mg PO DAILY 01/02/24 01/02/24 History Cyanocobalamin (Vitamin B-12) 1,000 mcg PO DAILY 01/02/24 01/02/24 History [Vitamin B-12] Ergocalciferol (Vitamin D2) 1,250 mcg PO MO 01/02/24 01/02/24 History [Drisdol (50,000 Iu)] Sertraline [Zoloft] 100 mg PO DAILY 01/02/24 01/02/24 History busPIRone HCl [Buspar] 10 mg PO BID 01/02/24 01/02/24 History lisinopriL [Zestril] 10 mg PO DAILY 01/02/24 01/02/24 History metFORMIN HCL 1,000 mg PO BID 01/02/24 01/02/24 History Allergies Allergy/AdvReac Type Severity Reaction Status Date / Time bee pollen Allergy Rash/Hives Verified 01/02/24 11:19 Latex, Natural Rubber Allergy Rash/Hives Verified 01/02/24 11:19 Penicillins Allergy Rash/Hives Verified 01/02/24 11:19 Physical Examination On exam patient is resting comfortably in bed in no acute distress. Patient is alert and oriented 3. There is no tenderness to palpation over the cervical or thoracic spinal mid lines. There is no step-off or deformity. No swelling or erythema. Patient has full range of motion of the head and neck without pain or difficulty. Patient has full range of motion of the right shoulder, wrist and hand without pain or difficulty. There is slightly decreased rn neonatal icu strength, 4/5, of the right hand compared to the left. Otherwise, strength to the right upper extremity is 5/5. There is no swelling, erythema, tenderness to palpation or ecchymosis of the right upper extremity. Sensation intact. The right upper extremity is warm and well-perfused. Results - Labs Labs: Abnormal Lab Results - Last 24 Hours (Table) 01/02/24 01/02/24 01/02/24 Range/Units 10:17 15:30 17:21 Chloride 109 H (98-107) mmol/L Carbon Dioxide 20 L (22-30) mmol/L Glucose 112 H (74-99) mg/dL POC Glucose (mg/dL) 111 H (70-110) mg/dL Hemoglobin A1c 6.9 H (<=6.0) % H & H 01/02/24 Range/Units 10:17 Hgb 13.7 (11.4-16.0) gm/dL Hct 43.3 (34.0-46.0) % Coagulation 01/02/24 Range/Units 10:17 INR 1.0 (<1.2) Result Diagrams: 01/02/24 10:17 01/02/24 10:17 Assessment and Plan (1) Paresthesia of right arm Current Visit: Yes Status: Acute Code(s): R20.2 - PARESTHESIA OF SKIN SNOMED Code(s): 43090847160776850 Plan: 1. An x-ray of the cervical spine is pending. 2. Appreciate input from internal medicine. 3. Further recommendations pending x-ray results.
--- NOTE | 2024-01-03 08:03 | XR ---
EXAMINATION TYPE: XR cervical spine comp DATE OF EXAM: 01/03/2024 COMPARISON: None HISTORY: 48-year-old female with pain along the right arm TECHNIQUE: 5 views FINDINGS: No predental space widening or prevertebral soft tissue swelling. Mild disc/endplate degenerative cindy nge C6-C7 with anterior endplate spondylosis. Alignment is maintained though there is straightening o f the normal cervical lordosis. No significant bony neuroforaminal narrowing seen on either side. Nor mal odontoid view. IMPRESSION: Mild degenerative disc disease C6-C7. Straightening of the normal cervical lordosis could be position al or due to muscle spasm. No significant bony neuroforaminal narrowing identified on either side.
[2024-01-03] MEDS ORDERED: lisinopriL 10 MG TAB PO SCH (09:00)
[2024-01-03] MEDS: SERTRALINE 100 MG TAB PO SCH (09:47)
[2024-01-03] MEDS: lisinopriL 20 MG TAB PO SCH (09:47)
[2024-01-03 10:32] LABS: BUN/Creat Ratio 15.11 Ratio (12.00-20.00); Blood Urea Nitrogen 13.6 mg/dL (9.0-27.0); Calcium 9.6 mg/dL (8.7-10.3); Carbon Dioxide 23.4 mmol/L (21.6-31.8); Chloride 105 mmol/L (96-109); Glucose 129 mg/dL (70-110); Potassium 4.9 mmol/L (3.5-5.5); Sodium 139 mmol/L (135-145)
[2024-01-03 10:34] LABS: Basophils # (A) 0.03 X 10*3/uL (0.00-0.10); Basophils % (A) 0.5 %; Eosinophils # (A) 0.13 X 10*3/uL (0.04-0.35); Eosinophils % (A) 2.3 %; HCT 43.2 % (37.2-46.3); HGB 13.8 g/dL (12.0-15.0); Lymphocytes % (A) 38.5 %; MCH 28.9 pg (27.0-32.0); MCHC 31.9 g/dL (32.0-37.0); MCV 90.6 FL (80.0-97.0); Mean Platelet Volume 10.8 FL (9.5-12.2); Monocytes # (A) 0.37 X 10*3/uL (0.20-1.00); Monocytes % (A) 6.5 %; NRBC Per 100 WBC 0 X 10*3/uL (0.00-0.01); Neutrophils # (A) 2.97 X 10*3/uL (1.80-7.70); Neutrophils % (A) 51.9 %; Platelet Count 249 X 10*3/uL (140-440); RBC 4.77 X 10*6/uL (4.10-5.20); RDW 13.3 % (11.5-14.5); WBC 5.72 X 10*3/uL (4.50-10.00)
--- NOTE | 2024-01-03 10:46 | P.CRDCN ---
History of Present Illness History of present illness: HISTORY OF PRESENT ILLNESS: This is a 48-year-old female with a past medical history significant for hypertension and diabetes. Patient does not follow with a senior sharepoint developer. We have been asked to see the patient in consultation for chest pain. Patient examined at the bedside. Patient states on Monday her right arm started to feel like it was burning. She states on Monday she began to have pain in her right arm and it continued to feel like a burning stabbing sensation with some right- handed weakness. Patient states the pain is not worse with movement. She currently denies having any chest pain. She was seen by her PCP who directed her to come to the emergency room. The patient denies any history of CAD. She does report a significant family history of CAD. She is a non-smoker. Patient's blood pressures have been elevated during hospitalization with blood pressures [id number]. DIAGNOSTICS: - EKG reveals mechanism with T wave inversions in lead III, V1V3. - Chest xray negative for acute process. - Laboratory data: WBC 5.72. Hemoglobin 13.8. Platelet count 249. Sodium 139. Potassium 4.9. BUN 13.6. Creatinine 0.9. Troponin negative x 3 - Current home cardiac medications include lisinopril 10 mg daily. REVIEW OF SYSTEMS: At the time of my exam: CONSTITUTIONAL: Denies fever or chills. HEENT: Denies blurred vision, vision changes, or eye pain. Denies hemoptysis CARDIOVASCULAR: Denies chest pain. Denies orthopnea. Denies PND. Denies palpitations RESPIRATORY: Denies shortness of breath. GASTROINTESTINAL: Denies abdominal pain. Denies nausea or vomiting. HEMATOLOGIC: Denies bleeding disorders. GENITOURINARY: Denies any blood in urine. SKIN: Denies pruitis. Denies rash. PHYSICAL EXAM: VITAL SIGNS: Reviewed. GENERAL: Well-developed in no acute distress. HEENT: Head is normocephalic. Pupils are equal, round. Sclerae anicteric. Mucous membranes of the mouth are moist. Neck supple. No JVD or thyromegaly LUNGS: Respirations even and unlabored. Lungs essentially clear to auscultation bilaterally. HEART: Regular rate and rhythm. S1 and S2 heard. ABDOMEN: Soft. Nondistended. Nontender. EXTREMITIES: Normal range of motion. No clubbing or cyanosis. Peripheral pulses intact. No lower extremity edema NEUROLOGIC: Awake and alert. Oriented x 3. ASSESSMENT: Right arm discomfort, rule out anginal equivalent Hypertension Diabetes Family history of CAD PLAN: An acute coronary event has been ruled out Obtain 2D echo to assess cardiac structure and function Resume home cardiac medications Increase lisinopril to 20 mg daily for optimal blood pressure control Add amlodipine 5 mg daily Patient to undergo stress echocardiogram today If negative, patient to be discharged home from a cardiac standpoint Nurse practitioner note has been reviewed by physician. Signing provider agrees with the documented findings, assessment, and plan of care documented by JIG AND FIXTURE BUILDER as a scribe. Past Medical History Past Medical History: Diabetes Mellitus, Hypertension Additional Past Medical History / Comment(s): abdominal pain,bloating and gas,hx interstitial cystitis, "pre-diabetic" History of Any Multi-Drug Resistant Organisms: None Reported Past Surgical History: Section, Cholecystectomy, Hysterectomy, Orthopedic Surgery, Uterine Ablation Additional Past Surgical History / Comment(s): laparoscopy, breast implants, tummy tuck, EGD,colonoscopy, L knee meniscus and ACL Past Anesthesia/Blood Transfusion Reactions: No Reported Reaction Past Psychological History: Depression Smoking Status: Never smoker Past Alcohol Use History: Occasional Additional Past Alcohol Use History / Comment(s): quit smoking 15 yrs. ago, smoked <ppweek for 10 yrs. Past Drug Use History: None Reported - Past Family History Father Family Medical History: Deep Vein Thrombosis (DVT) Mother Family Medical History: Coronary Artery Disease (CAD) Additional Family Medical History / Comment(s): Triple bipass Brother(s) Family Medical History: Diabetes Mellitus, Myocardial Infarction (NH) Medications and Allergies Home Medications Medication Instructions Recorded Confirmed Type Ascorbic Acid [Vitamin C] 1,000 mg PO DAILY 01/02/24 01/02/24 History Cyanocobalamin (Vitamin B-12) 1,000 mcg PO DAILY 01/02/24 01/02/24 History [Vitamin B-12] Ergocalciferol (Vitamin D2) 1,250 mcg PO MO 01/02/24 01/02/24 History [Drisdol (50,000 Iu)] Sertraline [Zoloft] 100 mg PO DAILY 01/02/24 01/02/24 History busPIRone HCl [Buspar] 10 mg PO BID 01/02/24 01/02/24 History lisinopriL [Zestril] 10 mg PO DAILY 01/02/24 01/02/24 History metFORMIN HCL 1,000 mg PO BID 01/02/24 01/02/24 History Allergies Allergy/AdvReac Type Severity Reaction Status Date / Time bee pollen Allergy Rash/Hives Verified 01/02/24 11:19 Latex, Natural Rubber Allergy Rash/Hives Verified 01/02/24 11:19 Penicillins Allergy Rash/Hives Verified 01/02/24 11:19 Physical Exam Vitals: Vital Signs Temp Pulse Pulse Resp BP BP Pulse Ox 01/03/24 07:00 97.9 F 65 16 158/76 98 01/03/24 02:35 97.8 F 60 17 165/84 01/02/24 20:00 98.3 F 68 17 153/82 95 01/02/24 15:00 97.9 F 55 L 16 162/95 100 01/02/24 14:40 98.0 F 58 L 18 157/91 97 01/02/24 12:04 58 L 18 158/86 97 01/02/24 10:41 61 16 171/96 99 01/02/24 09:34 97.9 F 58 L 18 183/97 98 Intake and Output 01/02/24 01/03/24 01/03/24 22:59 06:59 14:59 Intake Total 230 Balance 230 Intake: Oral 230 Other: # Voids 2 1 Weight 90.718 kg Results 01/03/24 07:00 01/03/24 07:00 Cardiac Enzymes 01/02/24 01/02/24 01/02/24 Range/Units 10:17 10:17 15:30 AST 35 (14-36) U/L Troponin I <0.012 <0.012 (0.000-0.034) ng/mL 01/02/24 Range/Units 18:21 AST (14-36) U/L Troponin I <0.012 (0.000-0.034) ng/mL Coagulation 01/02/24 Range/Units 10:17 PT 10.5 (10.0-12.5) sec APTT 24.8 (22.0-30.0) sec CBC 01/02/24 Range/Units 10:17 WBC 7.1 (3.8-10.6) k/uL RBC 4.86 (3.80-5.40) m/uL Hgb 13.7 (11.4-16.0) gm/dL Hct 43.3 (34.0-46.0) % Plt Count 269 (150-450) k/uL Comprehensive Metabolic Panel 01/02/24 Range/Units 10:17 Sodium 137 (137-145) mmol/L Potassium 4.0 (3.5-5.1) mmol/L Chloride 109 H (98-107) mmol/L Carbon Dioxide 20 L (22-30) mmol/L BUN 12 (7-17) mg/dL Creatinine 0.63 (0.52-1.04) mg/dL Glucose 112 H (74-99) mg/dL Calcium 9.4 (8.4-10.2) mg/dL AST 35 (14-36) U/L ALT 29 (4-34) U/L Alkaline Phosphatase 74 (38-126) U/L Total Protein 7.1 (6.3-8.2) g/dL Albumin 4.2 (3.5-5.0) g/dL Current Medications Generic Name Dose Route Start Last Admin Trade Name Freq PRN Reason Stop Dose Admin Hydrocodone Bitart/Acetaminophen 1 each 01/02/24 14:28 Hydrocodone/Apap 5-325mg 1 Each Tab PO Q6HR PRN Pain Ascorbic Acid 1,000 mg 01/03/24 09:00 Ascorbic Acid 500 Mg Tab PO DAILY MACKENZIE Buspirone HCl 10 mg 01/02/24 21:00 01/02/24 22:35 Buspirone Hcl 10 Mg Tab PO 10 mg BID MACKENZIE Administration Cyanocobalamin 1,000 mcg 01/03/24 09:00 Cyanocobalamin 500 Mcg Tab PO DAILY MACKENZIE Ergocalciferol 1,250 mcg 01/08/24 09:00 Ergocalciferol 1,250 Mcg (50,000 Iu) Capsule PO MO MACKENZIE Famotidine 20 mg 01/02/24 21:00 01/02/24 22:35 Famotidine 20 Mg/2 Ml Vial IV 20 mg Q12HR MACKENZIE Administration Heparin Sodium (Porcine) 5,000 unit 01/02/24 16:00 01/02/24 22:35 Heparin Sodium,Porcine 5,000 Unit/Ml 1 Ml Vial SQ 5,000 unit Q8HR MACKENZIE Administration Lisinopril 10 mg 01/03/24 09:00 Lisinopril 10 Mg Tab PO DAILY MACKENZIE Morphine Sulfate 4 mg 01/02/24 12:37 01/03/24 02:25 Morphine Sulfate 4 Mg/Ml Syringe IV 4 mg Q4HR PRN Administration Severe Pain (Scale 7 to 10) Naloxone HCl 0.2 mg 01/02/24 12:37 Naloxone 0.4 Mg/Ml 1 Ml Vial IV Q2M PRN Opioid Reversal Sertraline HCl 100 mg 01/03/24 09:00 Sertraline 100 Mg Tab PO DAILY MACKENZIE Intake and Output 01/02/24 01/03/24 01/03/24 22:59 06:59 14:59 Intake Total 230 Balance 230 Intake: Oral 230 Other: # Voids 2 1 Weight 90.718 kg 01/02/24 10:17 01/02/24 10:17
[2024-01-03] MEDS ORDERED: CAFFEINE CITRATE 60 MG/3 ML VIAL IV PRN (11:41)
[2024-01-03] MEDS ORDERED: REGADENOSON 0.4 MG/5 ML SYRINGE IV PRN (11:41)
[2024-01-03] MEDS ORDERED: AMINOPHYLLINE 500 MG/20 ML VIAL IV PRN (11:41)
[2024-01-03] MEDS: amLODIPine 5 MG TAB PO SCH (13:57)
[2024-01-03] MEDS: CYANOCOBALAMIN 500 MCG TAB PO SCH (13:57)
[2024-01-03] MEDS: ASCORBIC ACID 500 MG TAB PO SCH (13:57)
[2024-01-03] MEDS: CAPSAICIN 0.025% CREAM 60 GM TUBE TOPICAL SCH (13:58)
[2024-01-03 13:59] LABS: Glucose,Whole Blood 129 mg/dL (70-110)
[2024-01-03] MEDS: HYDROcodone/APAP 5-325MG 1 EACH TAB PO PRN (15:21)
--- NOTE | 2024-01-03 15:26 | NM ---
EXAMINATION TYPE: NM stress lexiscan cardiolite DATE OF EXAM: 01/03/2024 COMPARISON: NONE CLINICAL INDICATION: Female, 48 years old with history of CP; TECHNIQUE: After the intravenous administration of 10.1 mCi Tc 99m Sestamibi - Cardiolite resting SP ECT images acquired 49 minutes post injection. The patient received 0.4mg Lexiscan, 25.1 mCi Tc 99m Sestamibi - Stress images obtained [address] injection FINDINGS: Review of stress and rest SPECT images demonstrates small area of reversibility along the anterior ap ical wall. Prominent adjacent GI activity. Gated analysis shows normal wall motion with an estimated left ventricular ejection fraction of 54 %. TID is calculated at 0.87, within normal limits. IMPRESSION: Possible small area of reversibility along the anterior apex. Estimated LVEF borderline at 54%.
--- NOTE | 2024-01-03 17:29 | CA ---
Lexiscan Nuclear Stress Test Report Name: Marely Kwon Exam Date: 01/03/2024 12:50 Exam Location: [facility] Stress Ht (in): 67 Wt (lb): 200 BSA: 2.02 Ordering Phys: Tammi Bonds Referring Phys: Mamta Technologist: GRETEL Age: 48 Gender: F : 1975 Procedure CPT: Indications: Reflex order-Stress test ICD-10 Codes: Patient History: Chest pain,hypertension and family history of heart disease. Medications: Meds past 24 hrs: Pretest Chest Pain: STRESS TEST Lexiscan Protocol Exercise Duration (min:sec): 02:[address] Depressions (mm): Angina Score: Montalvo Score: Resting HR (bpm): 61 Peak HR (bpm): 101 Resting BP (mmHg): 162 / 89 Peak BP (mmHg): 157 / 101 MPHR: 172 Target HR: 146 % MPHR: 59 METS: 1.0 Total Dose: Peak Dose: Atropine: Double Product: 77269 BP Response: Stress Termination: Infusion complete Stress Symptoms: Nausea Stress Summary: ECG ANALYSIS Resting ECG: Normal sinus rhythm normal lites normal intervals Stress ECG: Patient was given intravenous Lexiscan as a protocol did not have chest pain or diagnostic ST segment depression CONCLUSIONS Negative stress test by EKG criteria Cardial lead portion of the stress test will be reported separately Dr. Yon Pate MD (Electronically Signed) Final Date: 03 January 2024 17:28
--- NOTE | 2024-01-03 17:33 | CA ---
Transthoracic Echo Report Name: Marely Kwon Age: 48 Gender: F : 1975 Exam Date: 01/03/2024 11:37 Exam Location: [facility] Echo Ht (in): 67 Wt (lb): 200 Ordering Physician: Royal Swenson MD Attending/Referring Phys: [id number], Messi Residential Real Estate Assistant Lou Waldron, RDTRICIA Procedure CPT: Indications: Rule out heart disease Cardiac Hx: Breast Implants Technical Quality: Fair Contrast 1: Total Dose (mL): Contrast 2: Total Dose (mL): MEASUREMENTS (Male / Female) Normal Values 2D ECHO LV Diastolic Diameter PLAX 4.9 cm 4.2 - 5.9 / 3.9 - 5.3 cm LV Systolic Diameter PLAX 3.0 cm IVS Diastolic Thickness 1.1 cm 0.6 - 1.0 / 0.6 - 0.9 cm LVPW Diastolic Thickness 1.1 cm 0.6 - 1.0 / 0.6 - 0.9 cm LV Relative Wall Thickness 0.4 RV Internal Dim ED PLAX 2.5 cm LA Systolic Diameter LX 3.5 cm 3.0 - 4.0 / 2.7 - 3.8 cm LV Diastolic Volume MOD BP 65.0 cm??? 67 - 155 / 56 - 104 cm??? LV Systolic Volume MOD BP 22.6 cm??? 22 - 58 / 19 - 49 cm??? LV Ejection Fraction MOD BP 65.2 % >= 55 % LV Cardiac Index MOD BP 1130.8 cm???/min???m??? LV Diastolic Volume MOD 4C 53.1 cm??? LV Systolic Volume MOD 4C 20.4 cm??? LV Ejection Fraction MOD 4C 61.6 % LV Cardiac Index MOD 4C 872.4 cm???/min???m??? LV Diastolic Length 4C 7.3 cm LV Systolic Length 4C 5.9 cm LV Diastolic Volume MOD 2C 76.3 cm??? LV Systolic Volume MOD 2C 24.6 cm??? LV Ejection Fraction MOD 2C 67.8 % LV Cardiac Index MOD 2C 1379.9 cm???/min???m??? LV Diastolic Length 2C 7.6 cm LV Systolic Length 2C 6.2 cm LA Volume 25.1 cm??? 18 - 58 / 22 - 52 cm??? LA Volume Index 11.9 cm???/m??? 16 - 28 cm???/m??? M-MODE Aortic Root Diameter MM 2.5 cm LA Systolic Diameter MM 3.4 cm LA Ao Ratio MM 1.4 AV Cusp Separation MM 1.7 cm DOPPLER MV Area PHT 3.0 cm??? Mitral E Point Velocity 83.0 cm/s Mitral A Point Velocity 66.8 cm/s Mitral E to A Ratio 1.2 MV Deceleration Time 249.2 ms FINDINGS Left Ventricle Left ventricular ejection fraction is estimated at 55-60 %. Mildly increased septal wall thickness. Mildly increased posterior wall thickness. Left ventricular cavity size normal. No obvious regional wall motion abnormalities. Right Ventricle Normal right ventricular size and function. Right ventricular systolic pressure within normal limits. Right Atrium Normal right atrial size. Left Atrium Normal left atrial size. Mitral Valve Structurally normal mitral valve. Trace mitral regurgitation. No mitral stenosis. Aortic Valve Trileaflet aortic valve. No aortic valve stenosis or regurgitation. Tricuspid Valve Structurally normal tricuspid valve. Trace tricuspid regurgitation. Pulmonic Valve Structurally normal pulmonic valve. Trace pulmonic regurgitation. No pulmonic stenosis. Pericardium No pericardial or pleural effusion. Aorta Normal size aortic root and proximal ascending aorta. CONCLUSIONS Normal LV function Previewed by: Dr. Yon Pate MD (Electronically Signed) Final Date: 03 January 2024 17:32
[2024-01-03 17:34] LABS: Glucose,Whole Blood 241 mg/dL (70-110)
[2024-01-03 20:10] LABS: Glucose,Whole Blood 192 mg/dL (70-110)
[2024-01-04 05:47] LABS: Glucose,Whole Blood 150 mg/dL (70-110)
[2024-01-04] MEDS ORDERED: NITROGLYCERIN SL TABS 0.4 MG TAB SUBLINGUAL PRN (08:02)
[2024-01-04] MEDS ORDERED: ALPRAZolam 0.5 MG TAB PO PRN (08:02)
[2024-01-04] MEDS ORDERED: ALPRAZolam 0.25 MG TAB PO PRN (08:02)
[2024-01-04] MEDS: SODIUM CHLORIDE 0.9% 1,000 ML in EMPTY BAG 1 BAG IV SCH (08:09)
[2024-01-04] MEDS: ASPIRIN 325 MG TAB PO STA (08:36)
[2024-01-04] MEDS: ATORVASTATIN 80 MG TAB PO STA (08:36)
--- NOTE | 2024-01-04 08:55 | P.PN ---
Subjective HISTORY OF PRESENT ILLNESS: This is a 48-year-old female with a past medical history significant for hypertension and diabetes. 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 We have been asked to see the patient in consultation for chest pain. Patient examined at the bedside. Patient states on Monday her right arm started to feel like it was burning. She states on Monday she began to have pain in her right arm and it continued to feel like a burning stabbing sensation with some right- handed weakness. Patient states the pain is not worse with movement. She currently denies having any chest pain. She was seen by her PCP who directed her to come to the emergency room. The patient denies any history of CAD. She does report a significant family history of CAD. She is a non-smoker. Patient's blood pressures have been elevated during hospitalization with blood pressures [id number]. DIAGNOSTICS: - EKG reveals mechanism with T wave inversions in lead III, V1V3. - Chest xray negative for acute process. - Laboratory data: WBC 5.72. Hemoglobin 13.8. Platelet count 249. Sodium 139. Potassium 4.9. BUN 13.6. Creatinine 0.9. Troponin negative x 3 - Current home cardiac medications include lisinopril 10 mg daily. Addendum entered and electronically signed by Tammi Bonds NP-C 01/03/24 14:13: Patient became dizzy and thought she was going to pass out during stress echo and test had to be stopped Patient to now undergo Lexiscan stress test today 01/04/2024 Patient examined this morning the bedside. Patient denies any chest pain or pressure. She denies any shortness of breath. She continues to report pain in her right arm. Patient underwent Lexiscan stress test yesterday revealing possible small area of reversibility along the anterior apex. Blood pressures are better controlled today with a recent reading of 138/79. Echocardiogram completed revealing ejection fraction 55 to 60%. PHYSICAL EXAM: VITAL SIGNS: Reviewed. GENERAL: Well-developed in no acute distress. HEENT: Head is normocephalic. Pupils are equal, round. Sclerae anicteric. Mucous membranes of the mouth are moist. Neck supple. No JVD or thyromegaly LUNGS: Respirations even and unlabored. Lungs essentially clear to auscultation bilaterally. HEART: Regular rate and rhythm. S1 and S2 heard. ABDOMEN: Soft. Nondistended. Nontender. EXTREMITIES: Normal range of motion. No clubbing or cyanosis. Peripheral pulses intact. No lower extremity edema NEUROLOGIC: Awake and alert. Oriented x 3. ASSESSMENT: Right arm discomfort, rule out anginal equivalent, status post Melissa scan revealing small area of reversibility along the anterior apex Hypertension Diabetes Family history of CAD PLAN: Continue current cardiac medications Due to patient's abnormal Lexiscan, comorbidities, and patient's family history of CAD, patient will undergo cardiac catheterization today. Procedure explained to the patient and she is agreeable to proceed Patient will undergo cardiac catheterization today with Dr. Pate If cardiac catheterization is unremarkable, she may be discharged home this afternoon Nurse practitioner note has been reviewed by physician. Signing provider agrees with the documented findings, assessment, and plan of care documented by MAINTENANCE SERVICE SUPERVISOR as a scribe. Objective - Vital Signs Vital signs: Vital Signs Temp 98.1 F 01/04/24 07:00 Pulse 60 01/04/24 07:00 Resp 20 01/04/24 07:00 BP 138/79 01/04/24 07:00 Pulse Ox 99 01/04/24 07:00 FiO2 Intake & Output 01/03/24 01/04/24 01/04/24 18:59 06:59 18:59 Intake Total 118 Balance 118 Intake: Oral 118 Other: # Voids 1 1 - Labs CBC & Chem 7: 01/03/24 07:00 01/03/24 07:00 Labs: Abnormal Lab Results - Last 24 Hours (Table) 01/03/24 01/03/24 01/03/24 Range/Units 07:00 07:00 13:58 MCHC 31.9 L (32.0-37.0) g/dL Glucose 129 H (70-110) mg/dL POC Glucose (mg/dL) 129 H (70-110) mg/dL 01/03/24 01/03/24 01/04/24 Range/Units 17:33 20:09 05:46 MCHC (32.0-37.0) g/dL Glucose (70-110) mg/dL POC Glucose (mg/dL) 241 H 192 H 150 H (70-110) mg/dL
[2024-01-04] MEDS: IV FLUID CONTINUATION 950 ML IV ONE (10:27)
[2024-01-04] MEDS: fentaNYL (PF) 50 MCG/ML 2 ML AMP IVP ONE (10:27)
[2024-01-04] MEDS: MIDAZOLAM 2 MG/2 ML VIAL IVP ONE ×2 (10:27→10:40)
[2024-01-04] MEDS: LIDOCAINE 1% INJ 10MG/ML (5 ML VIAL-PF) SQ ONE (10:32)
[2024-01-04] MEDS: VERAPAMIL SYRINGE (5 MG/10 ML) INTRAARTER ONE (10:34)
[2024-01-04] MEDS: LIDOCAINE 1% INJ 10MG/ML (20 ML MDV) SQ ONE (10:55)
[2024-01-04] MEDS: IOPAMIDOL-370 200ML BTL INJ ONE (11:22)
[2024-01-04] MEDS ORDERED: RX INFO: IV CONTRAST WAS GIVEN 1 EACH MISC MISCELLANE PRN (12:13)
[2024-01-04] MEDS: SODIUM CHLORIDE 0.9% 1,000 ML IV SCH (12:15)
[2024-01-04 12:21] LABS: Glucose,Whole Blood 110 mg/dL (70-110)
--- NOTE | 2024-01-04 12:34 | P.PN ---
Subjective i came to see pt and she was in stress test Objective - Vital Signs Vital signs: Vital Signs Temp 98.1 F 01/03/24 19:23 Pulse 76 01/03/24 19:23 Resp 16 01/03/24 19:23 BP 134/86 01/03/24 19:23 Pulse Ox 97 01/03/24 19:23 FiO2 Intake & Output 01/03/24 01/03/24 01/04/24 06:59 18:59 06:59 Intake Total 230 118 Balance 230 118 Intake: Oral 230 118 Other: # Voids 1 1 - Labs CBC & Chem 7: 01/03/24 07:00 01/03/24 07:00 Labs: Abnormal Lab Results - Last 24 Hours (Table) 01/02/24 01/03/24 01/03/24 Range/Units 15:30 05:57 07:00 MCHC 31.9 L (32.0-37.0) g/dL Glucose (70-110) mg/dL POC Glucose (mg/dL) 120 H (70-110) mg/dL Hemoglobin A1c 6.9 H (<=6.0) % 01/03/24 01/03/24 01/03/24 Range/Units 07:00 13:58 17:33 MCHC (32.0-37.0) g/dL Glucose 129 H (70-110) mg/dL POC Glucose (mg/dL) 129 H 241 H (70-110) mg/dL Hemoglobin A1c (<=6.0) % 01/03/24 Range/Units 20:09 MCHC (32.0-37.0) g/dL Glucose (70-110) mg/dL POC Glucose (mg/dL) 192 H (70-110) mg/dL Hemoglobin A1c (<=6.0) %
--- NOTE | 2024-01-04 12:34 | P.PN ---
Subjective This is a pleasant 48 years old female with past medical history of diabetes mellitus, hypertension, s/p cholecystectomy and hysterectomy. Presents because of right upper back pain of 3 days duration, pain about 5-6/10 in severity, radiating around to the right arm and right axilla [place] like burning and stabbing pain, with no relieving or precipitating factors. Patient pain improves with pain medication and emergency room but she denies any recent history of trauma or fall and. Patient pain described as continuous She denies dyspnea or coughing No change in urine or bowel habits. No fever. She denies smoking illicit drugs, she drinks alcohol occasionally. Afebrile and vitals are stable She has unremarkable labs including INR, CBC, BMP, liver enzymes Troponin x 1 is negative less than 0.012. Chest x-ray is not showing no acute cardiopulmonary process EKG showing sinus bradycardia at [address]-T changes, T wave inversion in lead III, V1-V3 01/04/2024 Yesterday patient has stress test which shows fixed reversibility lesion, cardiology team recommended cardiac cath today which is still pending result. Patient currently with no chest pain She still complaining of from right shoulder blade pain with some numbness. She has good handgrip comparable to the other side. No headache dizziness. No other weakness numbness or blurred vision or slurred speech. Cervical spine x-ray showing mild degenerative disc disease C6-C7. Straightening of the normal cervical lordosis could be positional or due to musc le spasm. No significant bony neuroforaminal narrowing identified MRI of the cervical spine without contrast is ordered and pending Hemoglobin A1c is 6.9% Objective - Vital Signs Vital signs: Vital Signs Temp 98.1 F 01/04/24 07:00 Pulse 60 01/04/24 07:00 Resp 20 01/04/24 08:35 BP 138/79 01/04/24 07:00 Pulse Ox 99 01/04/24 07:00 FiO2 Intake & Output 01/03/24 01/04/24 01/04/24 18:59 06:59 18:59 Intake Total 118 Balance 118 Intake: Oral 118 Other: Voiding Method Toilet # Voids 1 1 - Exam GENERAL: The patient is alert and oriented x3, not in any acute distress. Well developed, well nourished. HEENT: Pupils are round and equally reacting to light. EOMI. No scleral icterus. No conjunctival pallor. Normocephalic, atraumatic. No pharyngeal erythema. No thyromegaly. CARDIOVASCULAR: S1 and S2 present. No murmurs, rubs, or gallops. PULMONARY: Chest is clear to auscultation, no wheezing , no crackles. ABDOMEN: Soft, nontender, nondistended, normoactive bowel sounds. No palpable organomegaly. MUSCULOSKELETAL: No joint swelling or deformity. EXTREMITIES: No cyanosis, clubbing, or pedal edema. NEUROLOGICAL: Gross neurological examination did not reveal any focal deficits. SKIN: No rashes. no petechiae. - Labs CBC & Chem 7: 01/03/24 07:00 01/03/24 07:00 Labs: Abnormal Lab Results - Last 24 Hours (Table) 01/03/24 01/03/24 01/03/24 Range/Units 13:58 17:33 20:09 POC Glucose (mg/dL) 129 H 241 H 192 H (70-110) mg/dL 01/04/24 Range/Units 05:46 POC Glucose (mg/dL) 150 H (70-110) mg/dL Assessment and Plan Assessment: Right upper back pain , and right shoulder blade area pain radiating to the right axilla, with some numbness , rule out cardiac or orthopedic causes Diabetes mellitus Hypertension Obesity with BMI 31.3 Plan: follow up the cardiac catheter result. Electronics Technology Department Chair on the case Orthopedic team on the case as well MRI of the cervical spine is ordered and is pending Pain management Labs and medication were reviewed.. Continue same treatment. Continue with symptomatic treatment. Resume home medication. Monitor labs and vitals. DVT and GI prophylaxis. Further recommendations as per clinical course of the patient DVT prophylaxis: Subcutaneous heparin GI Prophylaxis: Pepcid Prognosis is guarded
--- NOTE | 2024-01-04 12:57 | CC ---
CARDIAC CATHETERIZATION REPORT INDICATIONS: Chest pain with abnormal stress test. PROCEDURE NOTE: After obtaining informed consent, left heart catheterization and coronary angiogram were performed via the right femoral artery using standard Cristian catheters. The patient tolerated the procedure well without any obvious immediate complications. A femoral angiogram was performed, and Angio-Seal was deployed for hemostasis. Total sedation time was 40 minutes. I initially attempted cardiac catheterization via the right radial artery, obtained right radial access using Seldinger technique. We were able to pass the catheters and wire all the way into the subclavian artery but she has very tortuous vessels. It was difficult to manipulate the catheter and wire into the ascending aorta. Hence, I decided to proceed with the femoral catheterization. FINDINGS: 1. Hemodynamics: Left ventricular end-diastolic pressure is 14 to 16 mm. There is no significant gradient across the aortic valve. 2. Left Ventriculogram: Left ventriculogram is not performed. 3. Angiographic Data: a.Right Coronary Artery: Right coronary artery is a large dominant vessel that shows mild nonobstructive plaque in its midportion. Left main coronary artery is a normal-sized vessel and is free of stenosis. Divides into left anterior descending coronary artery and circumflex coronary artery. LAD and its branches and circumflex coronary artery and its branches are free of significant stenosis. CONCLUSION: Mild nonobstructive disease involving mid right coronary artery. PLAN: I reviewed angiographic data with the patient and told her that her stress test is a false-positive stress test and her management is going to be in the form of aspirin, statin, and aggressive risk factor modification. MMODL / IJN: [id number] /
--- NOTE | 2024-01-04 14:35 | P.PN ---
Progress Note - Text Progress Note Date: 01/04/24 The patient is not in her room available she is down at MRI currently. I was able to talk to her at bedside and discussed the history with him. I reviewed his her x-ray of her cervical spine as well. The patient has been having right upper extremity numbness tingling with what sounds like radiculopathy. She has been in the hospital for workup in regards to possible cardiac issues. These have been coming back negative thus far. She had a cardiac catheterization today. In regards to her numbness tingling in her upper extremity I think that she may have some radiculopathy. We will be able to review the MRI further. It is very likely that we will continue management on outpatient basis in terms of her cervical spine. I can plan to see her back in approximately 1 weeks for recheck evaluation and to review further treatment options with her. I discussed this with and with the housestaff.
--- NOTE | 2024-01-04 14:58 | MR ---
EXAMINATION TYPE: MR cervical spine wo con DATE OF EXAM: 01/04/2024 2:29 PM CLINICAL INDICATION:Female, 48 years old with history of radiculopathy RUE; PHH, Neck pain, RUE radic ulopathy. COMPARISON: 01/03/2024. TECHNIQUE: Multi planar, multi sequence imaging was performed utilizing: T1-weighted, T2-weighted, an d turbo inversion recovery imaging of the cervical spine. IV Contrast: cc (none if empty) FINDINGS: Alignment: The cervical vertebral bodies have preserved heights. Alignment is within normal limits gi tamar patient positioning. Bones: Osteophytes and disc space narrowing most pronounced at the C5-C7 vertebral levels. Cord: The spinal cord is unremarkable with regards to their signal intensity and morphology. Discs: Intervertebral disc signal is maintained. C2-C3: No significant disc pathology. The spinal canal is patent. No neural foraminal stenosis. C3-C4: No significant disc pathology. The spinal canal is patent. No neural foraminal stenosis. C4-C5: No significant disc pathology. The spinal canal is patent. No neural foraminal stenosis. C5-C6: A disc osteophyte complex is present which minimally narrows the ventral subarachnoid space. Bilateral facet and uncovertebral joint arthropathy are present with mild to moderate bilateral neur al foraminal stenosis. C6-C7: A disc osteophyte complex is present which minimally narrows the ventral subarachnoid space. Bilateral facet and uncovertebral joint arthropathy are present with mild bilateral neural foraminal stenosis. C7-T1: No significant disc pathology. The spinal canal is patent. No neural foraminal stenosis. Other: None. IMPRESSION: 1. No evidence for disc herniation or significant spinal canal stenosis. 2. Mild disc degeneration with associated osteoarthritic changes. No evidence for significant neural foraminal stenosis.
[2024-01-04] MEDS: ACETAMINOPHEN TAB 325 MG TAB PO PRN (15:36)
[2024-01-04 17:39] LABS: Glucose,Whole Blood 134 mg/dL (70-110)
[2024-01-04 20:43] LABS: Glucose,Whole Blood 145 mg/dL (70-110)
[2024-01-04] MEDS: SENNOSIDES 8.6 MG TAB PO SCH (21:06)
[2024-01-05 06:24] LABS: Glucose,Whole Blood 145 mg/dL (70-110)
[2024-01-05] MEDS ORDERED: HEPARIN SODIUM,PORCINE (1 ML) 2,500 UNIT in SODIUM CHLORIDE 0.9% 250 ML IRRIGATION PRN (07:00)
[2024-01-05] MEDS ORDERED: HEPARIN SODIUM,PORCINE 10,000 UNIT in SODIUM CHLORIDE 0.9% 1,000 ML IRRIGATION PRN (07:00)
--- NOTE | 2024-01-05 07:53 | P.PN ---
Progress Note - Text Progress Note Date: 01/05/24 The patient's imaging is reviewed and the case is again reviewed. The imaging shows diffuse disc bulging at C5-6 C6-7. Patient has been having some right upper extremity numbness and tingling which can correlate with some exacerbation from her cervical spine. We do not plan any acute surgical intervention and I do not think that she needs any further imaging of her cervical spine at this point. I think it is okay for her to be discharged from a spine standpoint if she is cleared from medicine and cardiology. We can plan to follow her up outpatient from a spine standpoint in the next couple of weeks for recheck evaluation and further treatment as necessary.
--- NOTE | 2024-01-05 08:14 | P.PN ---
Subjective HISTORY OF PRESENT ILLNESS: This is a 48-year-old female with a past medical history significant for hypertension and diabetes. 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 We have been asked to see the patient in consultation for chest pain. Patient examined at the bedside. Patient states on Monday her right arm started to feel like it was burning. She states on Monday she began to have pain in her right arm and it continued to feel like a burning stabbing sensation with some right- handed weakness. Patient states the pain is not worse with movement. She currently denies having any chest pain. She was seen by her PCP who directed her to come to the emergency room. The patient denies any history of CAD. She does report a significant family history of CAD. She is a non-smoker. Patient's blood pressures have been elevated during hospitalization with blood pressures [id number]. DIAGNOSTICS: - EKG reveals mechanism with T wave inversions in lead III, V1V3. - Chest xray negative for acute process. - Laboratory data: WBC 5.72. Hemoglobin 13.8. Platelet count 249. Sodium 139. Potassium 4.9. BUN 13.6. Creatinine 0.9. Troponin negative x 3 - Current home cardiac medications include lisinopril 10 mg daily. Addendum entered and electronically signed by Tammi Bonds NP-C 01/03/24 14:13: Patient became dizzy and thought she was going to pass out during stress echo and test had to be stopped Patient to now undergo Lexiscan stress test today 01/04/2024 Patient examined this morning the bedside. Patient denies any chest pain or pressure. She denies any shortness of breath. She continues to report pain in her right arm. Patient underwent Lexiscan stress test yesterday revealing possible small area of reversibility along the anterior apex. Blood pressures are better controlled today with a recent reading of 138/79. Echocardiogram completed revealing ejection fraction 55 to 60%. 01/05/2024 Patient is status post cardiac catheterization yesterday with Dr. Pate revealing mild nonobstructive disease involving the mid right coronary artery. Patient examined this morning the bedside. She denies chest pain or pressure. She denies shortness of breath. Vital signs are stable. Patient did develop a right groin hematoma yesterday after she got up and ambulated to the bathroom. PHYSICAL EXAM: VITAL SIGNS: Reviewed. GENERAL: Well-developed in no acute distress. HEENT: Head is normocephalic. Pupils are equal, round. Sclerae anicteric. Mucous membranes of the mouth are moist. Neck supple. No JVD or thyromegaly LUNGS: Respirations even and unlabored. Lungs essentially clear to auscultation bilaterally. HEART: Regular rate and rhythm. S1 and S2 heard. ABDOMEN: Soft. Nondistended. Nontender. EXTREMITIES: Normal range of motion. No clubbing or cyanosis. Peripheral pulses intact. No lower extremity edema NEUROLOGIC: Awake and alert. Oriented x 3. ASSESSMENT: Right arm discomfort, rule out anginal equivalent, status post Melissa scan revealing small area of reversibility along the anterior apex Status post cardiac catheterization revealing mild nonobstructive coronary artery disease Hypertension Diabetes Family history of CAD PLAN: Continue current cardiac medications Obtain Doppler of right groin to rule out pseudoaneurysm If patient is stable this afternoon she may be discharged home and follow-up in the office with Dr. Pate Nurse practitioner note has been reviewed by physician. Signing provider agrees with the documented findings, assessment, and plan of care documented by CANINE DEPUTY as a scribe. Objective - Vital Signs Vital signs: Vital Signs Temp 98.4 F 01/05/24 03:35 Pulse 68 01/05/24 03:35 Resp 16 01/05/24 03:35 BP 127/80 01/05/24 03:35 Pulse Ox 96 01/05/24 03:35 FiO2 Intake & Output 01/04/24 01/05/24 01/05/24 18:59 06:59 18:59 Intake Total 876 Balance 876 Intake: IV 400 Oral 476 Other: Voiding Method Toilet Toilet # Voids 1 1 - Labs CBC & Chem 7: 01/03/24 07:00 01/03/24 07:00 Labs: Abnormal Lab Results - Last 24 Hours (Table) 01/04/24 01/04/24 01/05/24 Range/Units 17:37 20:42 06:23 POC Glucose (mg/dL) 134 H 145 H 145 H (70-110) mg/dL
--- NOTE | 2024-01-05 09:14 | US ---
EXAMINATION TYPE: US lower ext pseudo artery RT DATE OF EXAM: 01/05/2024 COMPARISON: NONE CLINICAL INDICATION: Female, 48 years old with history of r/o right femoral pseudoaneurysm s/p cath; heart cath yesterday, tender, no bruising or swelling EXAM PERFORMED: Grayscale and color Doppler duplex imaging performed of the groin, post cardiac munir ter to assess for pseudoaneurysm. SIDE PERFORMED: Right Color and Waveform Doppler performed to assess for the presence of pseudoaneurysm; Superior to KEYONNA/CIV at area of tenderness is 2.4 x 1.2 x 2.1cm hypoechoic, nonvascular area that may represent hematoma vs other etiology IMPRESSION: Suspected small hematoma in the area of the groins with avascular hypoechoic mass present. Consider s hort-term follow-up no evidence for pseudoaneurysm.
[2024-01-05 12:45] LABS: Glucose,Whole Blood 138 mg/dL (70-110)
--- NOTE | 2024-01-05 16:15 | P.CNNES ---
History of Present Illness Consult date: 01/05/24 Requesting physician: Kirby Dela Cruz Reason for Consult: right arm numbness History of Present Illness: This is a 48-year-old woman who presents because of numbness tingling from the shoulder over the right lateral posterior arm and had abnormal EKG as an outpatient therefore was sent to the hospital. Patient states that she noticed she is having numbness tingling over the posterior shoulder into the right arm since this past Monday and then she noticed the pain Monday. Denies any focal weakness, any other numbness tingling. Denies any visual disturbance. Denies any difficulty swallowing. Eyes any neck pain. She denies any history of stroke in the past. She denies any history of multiple sclerosis. Patient is diabetic. Father has multiple sclerosis. She denies any tobacco use or any illicit drug use. She socially drinks alcohol. There is a patient has large family history of cardiac disease. Some of the workup during this hospital visit consisted of: MRI of the cervical spine is reported as no evidence of disc herniation or significant spinal canal stenosis. Mild disc degeneration with associated osteoarthritic changes. No evidence for significant neuroforaminal stenosis Per the nurse she was notified by the orthopedic surgeon (Dr. Pruett) she can follow-up as outpatient. Per cardiology the EKG reveals mechanism of T wave inversion. She underwent Lexiscan stress test revealing possible small area of reversible along the anterior apex. 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 Primary attending ordered MRI of the brain and is pending. Review of Systems Review of system: The 12 point system was reviewed and apparent positive and negative per HPI. Past Medical History Past Medical History: Diabetes Mellitus, Hypertension Additional Past Medical History / Comment(s): abdominal pain,bloating and gas,hx interstitial cystitis, "pre-diabetic" History of Any Multi-Drug Resistant Organisms: None Reported Past Surgical History: Section, Cholecystectomy, Hysterectomy, Orthopedic Surgery, Uterine Ablation Additional Past Surgical History / Comment(s): laparoscopy, breast implants, tummy tuck, EGD,colonoscopy, L knee meniscus and ACL Past Anesthesia/Blood Transfusion Reactions: No Reported Reaction Past Psychological History: Depression Smoking Status: Never smoker Past Alcohol Use History: Occasional Additional Past Alcohol Use History / Comment(s): quit smoking 15 yrs. ago, smoked <ppweek for 10 yrs. Past Drug Use History: None Reported - Past Family History Father Family Medical History: Deep Vein Thrombosis (DVT) Mother Family Medical History: Coronary Artery Disease (CAD) Additional Family Medical History / Comment(s): Triple bipass Brother(s) Family Medical History: Diabetes Mellitus, Myocardial Infarction (CT) Medications and Allergies Home Medications Medication Instructions Recorded Confirmed Type Ascorbic Acid [Vitamin C] 1,000 mg PO DAILY 01/02/24 01/02/24 History Cyanocobalamin (Vitamin B-12) 1,000 mcg PO DAILY 01/02/24 01/02/24 History [Vitamin B-12] Ergocalciferol (Vitamin D2) 1,250 mcg PO MO 01/02/24 01/02/24 History [Drisdol (50,000 Iu)] Sertraline [Zoloft] 100 mg PO DAILY 01/02/24 01/02/24 History busPIRone HCl [Buspar] 10 mg PO BID 01/02/24 01/02/24 History metFORMIN HCL 1,000 mg PO BID 01/02/24 01/02/24 History Aspirin 81 mg PO DAILY #90 tab 01/04/24 Rx Atorvastatin [Lipitor] 40 mg PO HS #90 tablet 01/04/24 Rx amLODIPine [Norvasc] 5 mg PO DAILY #90 tab 01/04/24 Rx lisinopriL [Zestril] 20 mg PO DAILY #90 tab 01/04/24 Rx Allergies Allergy/AdvReac Type Severity Reaction Status Date / Time bee pollen Allergy Rash/Hives Verified 01/02/24 11:19 Latex, Natural Rubber Allergy Rash/Hives Verified 01/02/24 11:19 Penicillins Allergy Rash/Hives Verified 01/02/24 11:19 Physical Examination - Vital Signs Vital Signs: Vital Signs Temp Pulse Resp BP BP Pulse Ox 01/05/24 15:00 98.4 F 76 16 124/76 97 01/05/24 08:58 16 01/05/24 07:00 97.9 F 58 L 16 137/78 96 01/05/24 03:35 98.4 F 68 16 127/80 96 01/04/24 19:35 98.3 F 69 15 147/78 98 Intake and Output 01/05/24 01/05/24 01/05/24 06:59 14:59 22:59 Intake Total 1514 Balance 1514 Intake: Oral 1514 Other: Voiding Method Toilet Toilet # Voids 1 2 GENERAL: The patient is lying in bed and is not in acute distress. NEUROLOGICAL: Higher mental function: The patient is awake, alert, oriented to self, place and time. Patient is following commands. No aphasia and no neglect. Cranial nerves: The pupils are round, equal and reactive to light and accommodation. Visual grady are full to confrontation throughout. Extraocular movement is intact no nystagmus is noted. Facial sensation is normal to touch throughout. The facial strength is normal throughout. Hearing is normal bilaterally to hand rub. Tongue is midline and moved [id number] without any difficulty. No dysarthria is noted. Shoulder shrug is normal bilaterally. Motor: The strength is 4+ in the right upper extremity except hand band cutter is 5-. Otherwise 5 over 5 throughout. Normal tone and bulk. Cerebellum: Normal finger to nose bilaterally. Sensation: Sensation is is decrease over the posterior left shoulder and arm. Reflexes (right/left): 2+ throughout. Plantars are downgoing bilaterally. Results - Laboratory Findings CBC and BMP: 01/03/24 07:00 01/03/24 07:00 Abnormal Lab Findings: Abnormal Labs 01/02/24 01/02/24 01/02/24 10:17 15:30 17:21 MCHC Chloride 109 H Carbon Dioxide 20 L Glucose 112 H POC Glucose (mg/dL) 111 H Hemoglobin A1c 6.9 H 01/03/24 01/03/24 01/03/24 05:57 07:00 07:00 MCHC 31.9 L Chloride Carbon Dioxide Glucose 129 H POC Glucose (mg/dL) 120 H Hemoglobin A1c 01/03/24 01/03/24 01/03/24 13:58 17:33 20:09 MCHC Chloride Carbon Dioxide Glucose POC Glucose (mg/dL) 129 H 241 H 192 H Hemoglobin A1c 01/04/24 01/04/24 01/04/24 05:46 17:37 20:42 MCHC Chloride Carbon Dioxide Glucose POC Glucose (mg/dL) 150 H 134 H 145 H Hemoglobin A1c 01/05/24 01/05/24 06:23 12:44 MCHC Chloride Carbon Dioxide Glucose POC Glucose (mg/dL) 145 H 138 H Hemoglobin A1c Assessment and Plan Assessment: This is a 48-year-old woman with history of diabetes, hypertension who presents because of right shoulder and arm posterior region numbness tingling since this past Monday in which she had EKG as an outpatient and was notified it was abnormal. During this hospital visit she had a questionable abnormal Lexiscan but cardiac cath was showed mild nonobstructive disease involving mild right coronary artery. She had MRI of the cervical spine which does not support her paresthesia over the shoulder or arm. She is pending to have MRI of the brain Paresthesia of the right shoulder posterior region as well as the arm and on examination she had weakness in the right upper extremity: Rule out newly diagnosis of multiple sclerosis especially with a family history of multiple sclerosis. Another differential is cervical radiculopathy but I doubt it since patient is not having any neck pain. Diabetes mellitus her hemoglobin A1c is 6.9 Family history of multiple sclerosis Plan: Modified the MRI of the brain that was ordered by the primary team from without to with and without I ordered TSH, vitamin B12, folate Consider lumbar puncture depending on the finding of the MRI and differential of multiple sclerosis. Also consider IV Solu-Medrol depending on the MRI results and the further workup. Dr. Souza from orthopedic team recommended outpatient follow-up and if the workup is negative recommend EMG with nerve conduction study. Will defer the rest of the medical management to primary and other specialist Plan discussed with the patient and her nurse Thank for the consultation Dr. Oneil will resume neurology service tomorrow AM Time with Patient: Greater than 30
[2024-01-05 17:48] LABS: Glucose,Whole Blood 179 mg/dL (70-110)
--- NOTE | 2024-01-05 18:53 | MR ---
EXAMINATION TYPE: MR brain wo/w con DATE OF EXAM: 01/05/2024 5:42 PM CLINICAL INDICATION:Female, 48 years old with history of right paresthesia of forearm. Multiple scle rosis;, Right paresthesia of forearm. MS. COMPARISON: None TECHNIQUE: Multi planar, multi sequence imaging was performed through the brain including: T1, T2, In version recovery, susceptibility weighted imaging and gradient echo imaging and Diffusion weighted im aging. The patient was then given intravenous contrast and multi planar, T1 fat-saturation images wer e obtained. IV Contrast: 9 cc Gadavist FINDINGS: The hsu-white junctions, ventricular system, basal cisterns appear unremarkable. Diffusion-weighted imaging shows no evidence of restricted diffusion to suggest acute/subacute infarct. Intracranial ar terial flow voids are maintained. Midline structures show no abnormality. Scattered foci of high T2 s ignal intensity are seen within the periventricular white matter which are not orthogonal to the late ral ventricles.. The susceptibility weighted images do not reveal any evidence for micro-hemorrhage. After administration of gadolinium, no abnormal enhancement is seen. The bone marrow signal is within normal limits. Paranasal sinuses and mastoid air cells: No significant paranasal sinus disease. Visualized orbits: Orbital contents are intact. IMPRESSION: 1. No evidence of intracranial mass, acute/subacute infarct, or abnormal enhancement. 2. No evidence for active demyelination. Nonspecific white matter changes, abnormal for patient's age correlate for history of migraines findings could be compatible with multiple sclerosis although the majority of the white matter changes are not orthogonal to the lateral ventricles..
--- NOTE | 2024-01-06 12:34 | P.PN ---
Subjective Progress Note Date: 01/06/24 Principal diagnosis: Chest discomfort The patient is a pleasant 48-year-old female patient who was admitted to the hospital with chest discomfort and she was ruled out for acute coronary event. She underwent a heart catheterization by Dr. Pate and that was noted to be only for mild to moderate nonobstructive coronary artery disease and medical treatment was advised. The procedure was performed from the right common femoral artery January 06, 2024 The patient was seen and evaluated this morning. She is asymptomatic and she is hemodynamically stable. The right groin was tender but the ultrasound showed no aneurysm. From the cardiovascular standpoint of view, the patient can be discharged home. The examination is remarkable for stable vital signs and clear breathing sounds bilaterally and no edema was noted Assessment Chest discomfort Abnormal stress test Recent heart catheterization showed no obstructive CAD Plan Continue the current medical regimen The patient is a stable to be discharged from the cardiac standpoint Objective - Vital Signs Vital signs: Vital Signs Temp 98.4 F 01/06/24 07:00 Pulse 64 01/06/24 08:00 Resp 16 01/06/24 08:00 BP 143/83 01/06/24 07:00 Pulse Ox 98 01/06/24 07:00 FiO2 Intake & Output 01/05/24 01/06/24 01/06/24 18:59 06:59 18:59 Intake Total 1854 340 Balance 1854 340 Intake: Oral 1854 340 Other: Voiding Method Toilet Toilet Toilet # Voids 2 1 - Labs CBC & Chem 7: 01/03/24 07:00 01/03/24 07:00 Labs: Abnormal Lab Results - Last 24 Hours (Table) 01/05/24 01/05/24 Range/Units 12:44 17:47 POC Glucose (mg/dL) 138 H 179 H (70-110) mg/dL
--- NOTE | 2024-01-06 19:21 | P.PN ---
Subjective Progress Note Date: 01/06/24 Patient is a 48-year-old female with history of diabetes for 5 years, hypertension since 2003, developed numbness of the right posterior shoulder region 7 days ago, last Monday. On Monday, the shoulder was bothering and Monday she woke up with numbness of the left posterior upper arm. She has developed numbness in the right T1-T2 distribution. Some numbness involving the right armpit as well. Patient was referred by her primary physician on Monday for cardiac workup. Patient has developed a raised rash, 2 spots over the right posterior upper arm. Concern for herpes zoster. Patient feels like the back of the shoulder is bruised. She has numbness of the right T1-T2 distribution. No symptoms in the left side. No weakness. Some of the workup during this hospital visit consisted of: MRI of the cervical spine is reported as no evidence of disc herniation or s ignificant spinal canal stenosis. Mild disc degeneration with associated osteoarthritic changes. No evidence for significant neuroforaminal stenosis Per the nurse she was notified by the orthopedic surgeon (Dr. Pruett) she can follow-up as outpatient. Per cardiology the EKG reveals mechanism of T wave inversion. She underwent Lexiscan stress test revealing possible small area of reversible along the anterior apex. 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 Objective - Vital Signs Vital signs: Vital Signs Temp 98.4 F 01/06/24 18:46 Pulse 67 01/06/24 18:46 Resp 15 01/06/24 18:46 BP 135/83 01/06/24 18:46 Pulse Ox 99 01/06/24 18:46 FiO2 Intake & Output 01/05/24 01/06/24 01/06/24 18:59 06:59 18:59 Intake Total 1854 340 Balance 1854 340 Intake: Oral 1854 340 Other: Voiding Method Toilet Toilet Toilet # Voids 2 1 3 - Exam Mental status, speech and language functions are normal. Muscle strength is normal. No ataxia. Patient has a rash over the right posterior upper arm, 2 different spot region, red, raised. - Labs CBC & Chem 7: 01/03/24 07:00 01/03/24 07:00 Assessment and Plan Assessment: This is a 48-year-old woman with history of diabetes, hypertension who presents because of right shoulder and arm posterior region numbness tingling since this past Monday in which she had EKG as an outpatient and was notified it was abnormal. During this hospital visit she had a questionable abnormal Lexiscan but cardiac cath was showed mild nonobstructive disease involving mild right coronary artery. She had MRI of the cervical spine which does not support her paresthesia over the shoulder or arm. MRI of the brain revealed no significant pathology. Some nonspecific white matter changes, likely from small vessel disease. Paresthesia of the right shoulder posterior region as well as the arm and on examination she had weakness in the right upper extremity: Rule out newly diagnosis of multiple sclerosis especially with a family history of multiple sclerosis. Another differential is cervical radiculopathy but I doubt it since patient is not having any neck pain. Diabetes mellitus her hemoglobin A1c is 6.9 Family history of multiple sclerosis, and patient's father and niece. Plan: MRI of the brain revealed no evidence of intracranial mass, acute/subacute infarct, or abnormal enhancement. No evidence for active demyelination. Nonspecific white matter changes, abnormal for patient's age, correlate for his tory of migraines. Findings could be compatible with multiple sclerosis although the majority of the white matter changes are not orthogonal to the lateral ventricle. I personally reviewed MRI, and the lesions are suggestive of possible small vessel disease, does not appear typical demyelinating lesions as seen with MS. TSH 3.13, B12 306, folate 11.9. B12 is borderline, agree with starting B12 1000 mcg orally daily. Based upon MRI, I would not pursue lumbar puncture at this time. Recommend f ollow-up with neurologist outpatient. Dr. Souza from orthopedic team recommended outpatient follow-up and if the workup is negative recommend EMG with nerve conduction study. Patient has developed a rash over the right posterior upper arm. She has numbness of the right T1-T2 distribution. Concern for herpes zoster. Suggest starting Valtrex 1 g 3 times daily. Prescription given. Will defer the rest of the medical management to primary and other specialist Neurologically clear for discharge.
[2024-01-07 08:28] VITALS: BP 147/75; PULSE 71; RESP 16; TEMP 97.1
[2024-01-07 12:08] LABS: Glucose,Whole Blood 215 mg/dL (70-110)
--- NOTE | 2024-01-07 12:08 | P.PN ---
Subjective Progress Note Date: 01/05/24 48 years old female with past medical history of diabetes mellitus, hypertension, s/p cholecystectomy and hysterectomy. Presents because of right upper back pain of 3 days duration, pain about 5-6/10 in severity, radiating around to the right arm and right axilla [place] like burning and stabbing pain, with no relieving or precipitating factors. Patient pain improves with pain medication and emergency room but she denies any recent history of trauma or fall and. Patient pain described as continuous She denies dyspnea or coughing No change in urine or bowel habits. No fever. She denies smoking illicit drugs, she drinks alcohol occasionally. Afebrile and vitals are stable She has unremarkable labs including INR, CBC, BMP, liver enzymes Troponin x 1 is negative less than 0.012. Chest x-ray is not showing no acute cardiopulmonary process EKG showing sinus bradycardia at [address]-T changes, T wave inversion in lead III, V1-V3 Objective - Vital Signs Vital signs: Vital Signs Temp 98.4 F 01/06/24 07:00 Pulse 64 01/06/24 08:00 Resp 16 01/06/24 08:00 BP 143/83 01/06/24 07:00 Pulse Ox 98 01/06/24 07:00 FiO2 Intake & Output 01/05/24 01/06/24 01/06/24 18:59 06:59 18:59 Intake Total 1854 340 Balance 1854 340 Intake: Oral 1854 340 Other: Voiding Method Toilet Toilet Toilet # Voids 2 1 - Exam GENERAL: The patient is alert and oriented x3, not in any acute distress. Well developed, well nourished. HEENT: Pupils are round and equally reacting to light. EOMI. No scleral icterus. No conjunctival pallor. Normocephalic, atraumatic. No pharyngeal erythema. No thyromegaly. CARDIOVASCULAR: S1 and S2 present. No murmurs, rubs, or gallops. PULMONARY: Chest is clear to auscultation, no wheezing , no crackles. ABDOMEN: Soft, nontender, nondistended, normoactive bowel sounds. No palpable organomegaly. MUSCULOSKELETAL: No joint swelling or deformity. EXTREMITIES: No cyanosis, clubbing, or pedal edema. NEUROLOGICAL: Gross neurological examination did not reveal any focal deficits. SKIN: No rashes. no petechiae. - Labs CBC & Chem 7: 01/03/24 07:00 01/03/24 07:00 Labs: Abnormal Lab Results - Last 24 Hours (Table) 01/05/24 01/05/24 Range/Units 12:44 17:47 POC Glucose (mg/dL) 138 H 179 H (70-110) mg/dL Assessment and Plan Assessment: Right upper back pain , and right shoulder blade area pain radiating to the right axilla, with some numbness , rule out cardiac or orthopedic causes Diabetes mellitus Hypertension Obesity with BMI 31.3 Plan: follow up the cardiac catheter result. Branch Specialist on the case Orthopedic team on the case as well MRI of the cervical spine is ordered and is pending Pain management Labs and medication were reviewed.. Continue same treatment. Continue with symptomatic treatment. Resume home medication. Monitor labs and vitals. DVT and GI prophylaxis. Further recommendations as per clinical course of the pat ient DVT prophylaxis: Subcutaneous heparin GI Prophylaxis: Pepcid
--- NOTE | 2024-01-07 12:11 | P.PN ---
Subjective Progress Note Date: 01/06/24 48 years old female with past medical history of diabetes mellitus, hypertension, s/p cholecystectomy and hysterectomy. Presents because of right upper back pain of 3 days duration, pain about 5-6/10 in severity, radiating around to the right arm and right axilla [place] like burning and stabbing pain, with no relieving or precipitating factors. Patient pain improves with pain medication and emergency room but she denies any recent history of trauma or fall and. Patient pain described as continuous She denies dyspnea or coughing No change in urine or bowel habits. No fever. She denies smoking illicit drugs, she drinks alcohol occasionally. Afebrile and vitals are stable She has unremarkable labs including INR, CBC, BMP, liver enzymes Troponin x 1 is negative less than 0.012. Chest x-ray is not showing no acute cardiopulmonary process EKG showing sinus bradycardia at [address]-T changes, T wave inversion in lead III, V1-V3 01/06/2024 Patient is seen and evaluated in room at bedside; denies any specific complaints Vital signs are reviewed and stable with temperature of 98.4, pulse 64, respirations 16 and blood pressure 143/83 Right groin hematoma is stable; ultrasound completed today does not show any aneurysm; patient has been cleared for discharge by cardiology --Await neurology recommendations Objective - Vital Signs Vital signs: Vital Signs Temp 98.4 F 01/06/24 07:00 Pulse 64 01/06/24 08:00 Resp 16 01/06/24 08:00 BP 143/83 01/06/24 07:00 Pulse Ox 98 01/06/24 07:00 FiO2 Intake & Output 01/05/24 01/06/24 01/06/24 18:59 06:59 18:59 Intake Total 1854 340 Balance 1854 340 Intake: Oral 1854 340 Other: Voiding Method Toilet Toilet Toilet # Voids 2 1 - Exam GENERAL: The patient is alert and oriented x3, not in any acute distress. Well developed, well nourished. HEENT: Pupils are round and equally reacting to light. EOMI. No scleral icterus. No conjunctival pallor. Normocephalic, atraumatic. No pharyngeal erythema. No thyromegaly. CARDIOVASCULAR: S1 and S2 present. No murmurs, rubs, or gallops. PULMONARY: Chest is clear to auscultation, no wheezing , no crackles. ABDOMEN: Soft, nontender, nondistended, normoactive bowel sounds. No palpable organomegaly. MUSCULOSKELETAL: No joint swelling or deformity. EXTREMITIES: No cyanosis, clubbing, or pedal edema. NEUROLOGICAL: Gross neurological examination did not reveal any focal deficits. SKIN: No rashes. no petechiae. - Labs CBC & Chem 7: 01/03/24 07:00 01/03/24 07:00 Labs: Abnormal Lab Results - Last 24 Hours (Table) 01/05/24 01/05/24 Range/Units 12:44 17:47 POC Glucose (mg/dL) 138 H 179 H (70-110) mg/dL Assessment and Plan Assessment: Right upper back pain , and right shoulder blade area pain radiating to the right axilla, with some numbness , rule out cardiac or orthopedic causes Diabetes mellitus Hypertension Obesity with BMI 31.3 Plan: follow up the cardiac catheter result. Sales Exec on the case Orthopedic team on the case as well MRI of the cervical spine is ordered and is pending Pain management Labs and medication were reviewed.. Continue same treatment. Continue with symptomatic treatment. Resume home medication. Monitor labs and vitals. DVT and GI prophylaxis. Further recommendations as per clinical course of the patient DVT prophylaxis: Subcutaneous heparin GI Prophylaxis: Pepcid
[2024-01-08] MEDS ORDERED: ERGOCALCIFEROL 1,250 MCG (50,000 IU) CAPSULE PO SCH (09:00)
== END 2024-01-07 13:57 | disposition home or self-care (01) | DRG 74 ==
LOC: EC 09:32 → 6NMEDSUR 12:37 → OBSVTOIN 12:38 → 6NMEDSUR 14:28
PROVIDERS: ADMIT Hospitalist; ATTEND Hospitalist
PROC: B2111ZZ Fluoroscopy of Multiple Coronary Arteries using Low Osmolar Contrast (ICD-10-PCS; principal; 2024-01-04 12:00)
PROC: B41F1ZZ Fluoroscopy of Right Lower Extremity Arteries using Low Osmolar Contrast (ICD-10-PCS; principal; 2024-01-04 12:00)
PROC: 4A023N7 Measurement of Cardiac Sampling and Pressure, Left Heart, Percutaneous Approach (ICD-10-PCS; principal; 2024-01-04 12:00)
DX: M54.12 Radiculopathy, cervical region (principal); B02.9 Zoster without complications; E11.9 Type 2 diabetes mellitus without complications; I10 Essential (primary) hypertension; E66.9 Obesity, unspecified; Z68.31 Body mass index [BMI] 31.0-31.9, adult; F32.A Depression, unspecified; M50.323 Other cervical disc degeneration at C6-C7 level; M47.812 Spondylosis without myelopathy or radiculopathy, cervical region; I25.10 Atherosclerotic heart disease of native coronary artery without angina pectoris; M79.81 Nontraumatic hematoma of soft tissue; R00.1 Bradycardia, unspecified; Z79.84 Long term (current) use of oral hypoglycemic drugs; Z79.899 Other long term (current) drug therapy; Z87.891 Personal history of nicotine dependence; Z98.82 Breast implant status; Z88.0 Allergy status to penicillin; Z91.040 Latex allergy status
CPT/HCPCS: 36415; 70553; 71046; 72050; 72141; 78452; 80048; 80053; 82607; 82746; 83036; 83605; 83735; 84443; 84484; 85025; 85610; 85730; 93005; 93017; 93306; 93458; 93975; 96374; 96376; 99285

== ENCOUNTER → 2025-02-05 | Outpatient (CLI) | payer MEDICAID ==
--- NOTE | 2025-02-05 08:14 | MM ---
Reason for Exam: Screening (asymptomatic). Last mammogram was performed 1 year(s) and 3 month(s) ago. Patient History: Menarche at age 11. First Full-Term at age 20. Hysterectomy at age 39. Postmenopausal. Patient has history of breast feeding. Hormonal Contraceptives, starting at age 17 for 25 years. 2012, Implant(s). Risk Values: Adela 5 year model risk: 0.9%. NCI Lifetime model risk: 8.9%. Prior Study Comparison: 09/11/2020 Right Diagnostic Mammogram, [facility]. 08/02/2022 Bilateral MG 3D screen mammo imp/cad., [facility]. 11/28/2023 Bilateral MG 3D screen mammo imp/cad., [facility]. Tissue Density: There are scattered areas of fibroglandular density. Findings: Analyzed By CAD. Bilateral breast implants are redemonstrated. There is no suspicious group of microcalcifications or new suspicious mass in either breast. Overall Assessment: Benign, BI-RAD 2 Management: Screening Mammogram of both breasts in 1 year. . Patient should continue monthly self-breast exams. A clinical breast exam by your physician is recommended on an annual basis. This exam should not preclude additional follow-up of suspicious palpable abnormalities. Note on Adela scores and lifetime risk: 1. A Adela score greater than 3% is considered moderate risk. If this is the case, consider specialist referral to assess eligibility for a risk reducing agent. 2. If overall lifetime risk for the development of breast cancer is 20% or higher, the patient may qualify for future screening with alternating mammogram and breast MRI. [facility], , 02/05/2025 8:11 AM. Electronically signed and approved by: Emeka Guy M.D.
== END | disposition home or self-care (01) ==
LOC: RADMAMWWP 07:34
PROVIDERS: ATTEND Family Medicine
DX: Z12.31 Encounter for screening mammogram for malignant neoplasm of breast (principal); R92.323 Mammographic fibroglandular density, bilateral breasts; Z78.0 Asymptomatic menopausal state; Z92.0 Personal history of contraception
CPT/HCPCS: 77063; 77067